=== PATIENT | female | born 1950 | race Hispanic/Latino ===

== ENCOUNTER 2017-05-31 14:30 | Inpatient (IN) | payer OTHER ==
[~2017-05-31] VITALS: Ht 156.2 cm; Wt 78.1 kg
[~2017-05-31 14:30] MED LIST: LEVO50 PO
[2017-05-31 14:45] VITALS: BP 137/74
[2017-05-31 15:16] LABS: CREATININE 0.5 mg/dL (0.5-1.5); POTASSIUM 3.4 mmol/L (3.5-5.1)
[2017-05-31 15:21] LABS: INR 1.01 (0.85-1.15); PARTIAL THROMBOPLASTIN TIME 27.6 SEC (26.3-35.5); PROTHROMBIN TIME 10.6 SEC (9.6-11.6)
[2017-05-31] MEDS ORDERED: PRED5TAB PO (15:33)
[2017-05-31] MEDS ORDERED: DENO60DI SQ (15:33)
[2017-05-31] MEDS ORDERED: RABE20TA27 PO (15:33)
[2017-05-31] MEDS ORDERED: LOSA1TAB54 PO (15:33)
[2017-05-31] MEDS ORDERED: PREG50 PO (15:33)
[2017-05-31] MEDS ORDERED: OMEP40CA37 PO (15:33)
[2017-05-31] MEDS ORDERED: HYDR-4060 PO (15:34)
[2017-05-31 16:17] LABS: APPEARANCE,URINE Clear (CLEAR); BILIRUBIN,URINE Negative (NEGATIVE); COLOR,URINE Yellow (YELLOW); GLUCOSE, URINE (UA) Negative (NEGATIVE); KETONES,URINE Negative (NEGATIVE); LEUKOCYTE ESTERASE ,URINE Small (NEGATIVE); NITRATE,URINE Negative (NEGATIVE); OCCULT BLOOD,URINE Negative (NEGATIVE); PH,URINE 7.5 (5.0-8.0); PROTEIN,URINE Negative (NEGATIVE); UROBILINOGEN,URINE 0.2 mg/dL (0.2-1.0)
[2017-05-31 16:26] LABS: BACTERIA,URINE None Seen /HPF (None Seen); RBC,URINE None Seen /HPF (0-1); RENAL EPITHELIAL CELLS,URINE Few /LPF (None Seen); SQUAMOUS EPITHELIAL CELL,UR 0-2 /LPF (0-2); TRANSITIONAL EPI CELLS,URINE Few /LPF (None Seen); WBC,URINE 0-1 /HPF (0-1)
[2017-06-02 07:40] VITALS: BP 120/70
[2017-06-03] VITALS (26 sets, daily range): BP systolic 120–156; BP diastolic 66–97
[2017-06-03] MEDS ORDERED: TRANEXAMIC ACID 1000MG/10ML IV ONE (07:11)
[2017-06-03] MEDS ORDERED: CEFAZOLIN SODIUM 1 GM VIAL ONE (07:11)
[2017-06-03] MEDS ORDERED: LACTATED RINGERS 1000ML 1,000 ML IV ONE (07:46)
[2017-06-03] MEDS: CEFAZOLIN SODIUM 1 GM VIAL IVP SCH ×3 (08:00→18:13)
[2017-06-03] MEDS ORDERED: LIDOCAINE PF 2% 5ML ABBOJECT ONE (08:21)
[2017-06-03] MEDS ORDERED: ONDANSETRON HCL 4 MG/2 ML VIAL ONE (08:21)
[2017-06-03] MEDS ORDERED: PROPOFOL 10 MG/ML 20ML VIAL IV ONE (08:21)
[2017-06-03] MEDS ORDERED: ROCURONIUM BROMIDE 10MG/1ML 5ML VL ONE (08:21)
[2017-06-03] MEDS ORDERED: DEXAMETHASONE SOD PHOSPHATE 4 MG/ML 1ML VIAL ONE (08:21)
[2017-06-03] MEDS ORDERED: MIDAZOLAM HCL 1 MG/ML 2ML VIAL ONE (08:21)
[2017-06-03] MEDS ORDERED: FENTANYL CITRATE PF 50 MCG/1 ML 2ML VIAL ONE (08:22)
[2017-06-03] MEDS ORDERED: ACETAMINOPHEN EXTRA STRENGTH 500 MG TABLET ONE (08:27)
[2017-06-03] MEDS ORDERED: CELECOXIB 200 MG CAP ONE (08:27)
[2017-06-03] MEDS ORDERED: KETOROLAC TROMETHAMINE 15MG/ML ONE (08:27)
[2017-06-03] MEDS ORDERED: OXYCODONE HCL 10 MG TAB.SR.12H PO ONE (08:28)
[2017-06-03] MEDS ORDERED: METOCLOPRAMIDE 10 MG/2 ML VIAL ONE (08:28)
[2017-06-03] MEDS ORDERED: ROPIVACAINE 0.5% 5MG/ML 30ML IJ ONE (08:51)
[2017-06-03] MEDS ORDERED: CALDOLOR 800MG+NS 250ML 250 ML IV ONE (11:27)
[2017-06-03] MEDS ORDERED: POTASSIUM CHLORIDE 20MEQ/100ML 100 ML IV ONE (11:27)
[2017-06-03] MEDS ORDERED: HYDROCODONE/ACETAMINOPHEN 5/325 MG TAB PO PRN ×2 (13:45→16:45)
[2017-06-03] MEDS ORDERED: FE FUMARATE/FA/MV, MIN COMB#15 1 TAB PO PRN (13:45)
[2017-06-03] MEDS ORDERED: DiphenhydrAMINE HCL 50 MG/ML VIAL IVP PRN (13:45)
[2017-06-03] MEDS ORDERED: PROMETHAZINE HCL 25 MG/ML 1ML AMPULE IM PRN (13:45)
[2017-06-03] MEDS ORDERED: LIDOCAINE HCL-MPF 1% 2ML VIAL IVP PRN (13:45)
[2017-06-03] MEDS ORDERED: CALCIUM CARBONATE 500 MG TABLET PO PRN (13:45)
[2017-06-03] MEDS ORDERED: DIPHENHYDRAMINE HCL 25 MG CAPSULE PO PRN (13:45)
[2017-06-03] MEDS ORDERED: TEMAZEPAM 15 MG CAPSULE PO PRN (13:45)
[2017-06-03] MEDS ORDERED: POTASSIUM CHLORIDE 20MEQ/100ML 100 ML IV PRN (13:45)
[2017-06-03] MEDS ORDERED: POTASSIUM CHLORIDE 10% ELIXIR 20 MEQ/15 ML UDCUP PO PRN (13:45)
[2017-06-03] MEDS ORDERED: MEPERIDINE-PF 50 MG/ML SYG ONE (14:22)
[2017-06-03] MEDS ORDERED: NON-FORMULARY MEDICATION 1 EACH (Rabeprazole Sodium 20 MG) PO PRN (16:45)
[2017-06-03] MEDS ORDERED: NON-FORMULARY MEDICATION 1 EACH (Denosumab (Prolia) 60 MG) SQ SCH (16:45)
[2017-06-03] MEDS: CEFAZOLIN 2GM / 50 ML 50 ML IV SCH (18:13)
[2017-06-03] MEDS: SODIUM CHLORIDE 0.9% 1000ML 1,000 ML IV SCH (18:13)
[2017-06-03] MEDS: PREGABALIN 25 MG CAP PO SCH (21:00)
[2017-06-04] VITALS (7 sets, daily range): BP systolic 110–156; BP diastolic 63–78
[2017-06-04] MEDS: SODIUM CHLORIDE 0.9% 1000ML 1,000 ML IV SCH (02:04)
[2017-06-04] MEDS: CEFAZOLIN 2GM / 50 ML 50 ML IV SCH (02:45)
[2017-06-04] MEDS: CEFAZOLIN SODIUM 1 GM VIAL IVP SCH (03:08)
[2017-06-04] MEDS: HYDROCODONE/ACETAMINOPHEN 5/325 MG TAB PO PRN ×3 (03:11→11:58)
[2017-06-04] MEDS: KETOROLAC TROMETHAMINE 15MG/ML IV PRN ×4 (04:08→23:55)
[2017-06-04 04:58] LABS: HEMATOCRIT 31.6 % (36-48); MEAN CORPUSCULAR HEMOGLOBIN 31.6 pg (27.0-33.0); MEAN CORPUSCULAR HGB CONC 35.9 g/dL (32.0-36.0); MEAN CORPUSCULAR VOLUME 88.2 fL (79-99); PLATELET COUNT (AUTO) 249 K/uL (130-400); RED BLOOD CELL COUNT(AUTO) 3.58 MIL/uL (4.00-5.50); RED CELL DISTRIBUTION WIDTH 14.7 % (11.0-15.5)
[2017-06-04 05:03] LABS: CREATININE 0.5 mg/dL (0.5-1.5); POTASSIUM 3.4 mmol/L (3.5-5.1)
[2017-06-04] MEDS: LEVOTHYROXINE 50 MCG TABLET PO SCH (06:05)
[2017-06-04] MEDS: POLYETHYLENE GLYCOL 3350 17 GM POWD.PACK PO SCH (08:16)
[2017-06-04] MEDS: LOSARTAN/HYDROCHLOROTHIAZIDE 50-12.5MG TABLET PO SCH (08:16)
[2017-06-04] MEDS: PANTOPRAZOLE SODIUM 40 MG TABLET.DR PO SCH (08:17)
[2017-06-04] MEDS: POTASSIUM CHLORIDE 20 MEQ ERTAB PO PRN ×3 (08:17→18:09)
[2017-06-04] MEDS: ENOXAPARIN SODIUM 40 MG/0.4 ML SYRINGE SQ SCH (08:17)
[2017-06-04] MEDS: PREDNISONE 5 MG TABLET PO SCH (08:17)
[2017-06-04] MEDS: PSYLLIUM SEED 1 EACH PACKET PO SCH (11:58)
[2017-06-04] MEDS ORDERED: NALOXONE HCL 0.4 MG/1 ML ML IVP PRN (12:45)
[2017-06-04] MEDS ORDERED: HYDROMORPHONE PCA 10 MG/50 ML 50 ML IV PRN (12:45)
[2017-06-04] MEDS: PREGABALIN 25 MG CAP PO SCH (20:44)
[2017-06-05 05:07] LABS: MEAN CORPUSCULAR HEMOGLOBIN 30.2 pg (27.0-33.0); MEAN CORPUSCULAR HGB CONC 34.4 g/dL (32.0-36.0); MEAN CORPUSCULAR VOLUME 87.9 fL (79-99); NUCLEATED RED BLOOD CELLS 0.1 % (0.0-0.19); PLATELET COUNT (AUTO) 261 K/uL (130-400); RED BLOOD CELL COUNT(AUTO) 3.53 MIL/uL (4.00-5.50); RED CELL DISTRIBUTION WIDTH 14.9 % (11.0-15.5); WHITE BLOOD COUNT (AUTO) 7.9 K/uL (4.8-10.8)
[2017-06-05 05:19] LABS: CREATININE 0.5 mg/dL (0.5-1.5); POTASSIUM 3.9 mmol/L (3.5-5.1)
[2017-06-05] MEDS: LEVOTHYROXINE 50 MCG TABLET PO SCH (05:58)
[2017-06-05 07:48] VITALS: BP 142/71
[2017-06-05] MEDS: POLYETHYLENE GLYCOL 3350 17 GM POWD.PACK PO SCH (08:21)
[2017-06-05] MEDS: ENOXAPARIN SODIUM 40 MG/0.4 ML SYRINGE SQ SCH (08:21)
[2017-06-05] MEDS: LOSARTAN/HYDROCHLOROTHIAZIDE 50-12.5MG TABLET PO SCH (08:21)
[2017-06-05] MEDS: PREDNISONE 5 MG TABLET PO SCH (08:22)
[2017-06-05] MEDS: PANTOPRAZOLE SODIUM 40 MG TABLET.DR PO SCH (08:22)
[2017-06-05] MEDS ORDERED: HYDR-2132 PO (10:05)
[2017-06-05] MEDS ORDERED: ASPI-1012 PO (10:05)
[2017-06-05 11:16] VITALS: BP 119/70
[2017-06-05] MEDS: PSYLLIUM SEED 1 EACH PACKET PO SCH (12:38)
[2017-06-05] MEDS ORDERED: BISACODYL 5 MG TABLET.DR PO PRN (13:45)
[2017-06-05] MEDS: KETOROLAC TROMETHAMINE 15MG/ML IV PRN (14:09)
[2017-06-05] MEDS ORDERED: FLU VACC QS2017-18 36MOS UP/PF 60 MCG/0.5 ML ML IM ONE (15:15)
[2017-06-06] MEDS ORDERED: BISACODYL 10 MG SUPP.RECT RC PRN (13:45)
== END 2017-06-05 16:08 | disposition home health service (06) | DRG 483 ==
LOC: EDSTATUS 14:30 → DAHIP 06-03 07:28 → 4BH 06-03 14:38 → 4AH 06-03 14:47
PROVIDERS: ADMIT Orthopaedic Surgery; ATTEND Orthopaedic Surgery
PROC: 0RRJ00Z Replacement of Right Shoulder Joint with Reverse Ball and Socket Synthetic Substitute, Open Approach (ICD-10-PCS; principal; 2017-06-03 10:59)
DX: M12.9 Arthropathy, unspecified (principal)
CPT/HCPCS: 36415; 76000; 80048; 81001; 84132; 85027; 85610; 85730; 88304; 88311; 96374; 96375; A4218; A4565; G0008; J0690; J1100; J1170; J1650; J1741; J1885; J2001; J2175; J2250; J2405; J2704; J2765; J2795; J3010; J3480; J3490; J7030; J7120; J7512; Q2038

== ENCOUNTER 2018-02-24 13:11 | Emergency (ER) | payer OTHER ==
[~2018-02-24 13:11] MED LIST changes: +ASPI-1012 PO; +DENO60DI SQ; +HYDR-2132 PO; +HYDR-4060 PO; +LOSA1TAB54 PO; +OMEP40CA37 PO; +PRED5TAB PO; +PREG50 PO; +RABE20TA27 PO
[2018-02-24] MEDS ORDERED: HYDROCODONE/ACETAMINOPHEN 10/325 MG TAB ONE (14:07)
[2018-02-24] MEDS ORDERED: MORPHINE SULFATE 2 MG/ML 1ML SYG ONE (15:53)
[2018-02-24] MEDS ORDERED: MORPHINE SULFATE 8 MG/ML VIAL ONE (15:53)
== END 2018-02-24 16:28 | disposition home or self-care (01) ==
LOC: EDH 13:11
DX: S52.591A Other fractures of lower end of right radius, initial encounter for closed fracture (principal); S20.211A Contusion of right front wall of thorax, initial encounter; I10 Essential (primary) hypertension; Z88.6 Allergy status to analgesic agent; W10.8XXA Fall (on) (from) other stairs and steps, initial encounter; Y93.89 Activity, other specified; Y92.89 Other specified places as the place of occurrence of the external cause; Y99.8 Other external cause status
CPT/HCPCS: 71046; 73110; 73590; 96372; 99284; J2270

== ENCOUNTER 2018-03-03 06:13 | Day surgery (SDC) | payer OTHER ==
[2018-02-28 16:10] VITALS: BP 140/71
[2018-02-28 16:14] LABS: BASOPHILS % (AUTO) 1.2 % (0.0-5.0); EOSINOPHILS % (AUTO) 0.9 % (0.0-8.0); HEMATOCRIT 35.9 % (36-48); LYMPHOCYTES % (AUTO) 18.6 % (21.0-51.0); MEAN CORPUSCULAR HGB CONC 33.5 g/dL (32.0-36.0); MEAN CORPUSCULAR VOLUME 86.7 fL (79-99); MONOCYTES % (AUTO) 6.8 % (3.0-13.0); NEUTROPHILS % (AUTO) 72.5 % (40.0-77.0); PLATELET COUNT (AUTO) 369 K/uL (130-400); RED BLOOD CELL COUNT(AUTO) 4.14 MIL/uL (4.00-5.50); RED CELL DISTRIBUTION WIDTH 16.5 % (11.0-15.5); WHITE BLOOD COUNT (AUTO) 8.8 K/uL (4.8-10.8)
[2018-02-28 16:24] LABS: CREATININE 0.6 mg/dL (0.5-1.5); POTASSIUM 3.4 mmol/L (3.5-5.1)
[2018-02-28] MEDS: CEFAZOLIN SODIUM 1 GM VIAL IVP SCH (17:15)
[~2018-03-03] VITALS: Ht 154.9 cm; Wt 79.5 kg
[2018-03-03] VITALS (17 sets, daily range): BP systolic 95–119; BP diastolic 41–64
[~2018-03-03 06:13] MED LIST changes: -ASPI-1012 PO; +CHOL500051 PO; -DENO60DI SQ; -HYDR-2132 PO; -LEVO50 PO; -LOSA1TAB54 PO; -OMEP40CA37 PO; -PRED5TAB PO; -PREG50 PO; -RABE20TA27 PO; +TRAM50TA4 PO
[2018-03-03] MEDS ORDERED: LACTATED RINGERS 1000ML 1,000 ML IV ONE (06:37)
[2018-03-03] MEDS ORDERED: LOSA1TAB54 PO (07:02)
[2018-03-03] MEDS ORDERED: LIDOCAINE PF 2% 5ML ABBOJECT ONE (07:22)
[2018-03-03] MEDS ORDERED: FENTANYL CITRATE PF 50 MCG/1 ML 2ML VIAL ONE (07:23)
[2018-03-03] MEDS ORDERED: PROPOFOL 10 MG/ML 20ML VIAL IV ONE (07:23)
[2018-03-03] MEDS ORDERED: CEFAZOLIN SODIUM 1 GM VIAL ONE (07:43)
[2018-03-03] MEDS ORDERED: EPHEDRINE SULFATE 50 MG/ML AMPULE ONE (08:38)
[2018-03-03] MEDS: CEFAZOLIN SODIUM 1 GM VIAL IVP SCH (08:40)
[2018-03-03] MEDS ORDERED: KETOROLAC TROMETHAMINE 30MG/ML ONE ×2 (09:03→09:04)
[2018-03-03] MEDS ORDERED: ONDANSETRON HCL 4 MG/2 ML VIAL ONE (09:06)
[2018-03-03] MEDS ORDERED: MEPERIDINE-PF 25 MG/ML SYG ONE ×2 (09:29→09:39)
[2018-03-03] MEDS ORDERED: HYDR-4457 PO (09:30)
== END 2018-03-03 10:59 | disposition home or self-care (01) ==
LOC: DAH 06:13 → SUH 06:13
PROVIDERS: ATTEND Orthopaedic Surgery
DX: S52.511A Displaced fracture of right radial styloid process, initial encounter for closed fracture (principal); W18.30XA Fall on same level, unspecified, initial encounter; Y93.9 Activity, unspecified; Y92.89 Other specified places as the place of occurrence of the external cause; Y99.9 Unspecified external cause status; Z98.890 Other specified postprocedural states; Z68.32 Body mass index [BMI] 32.0-32.9, adult; I10 Essential (primary) hypertension; M06.9 Rheumatoid arthritis, unspecified; E55.9 Vitamin D deficiency, unspecified; K21.9 Gastro-esophageal reflux disease without esophagitis; Z79.899 Other long term (current) drug therapy; Z90.49 Acquired absence of other specified parts of digestive tract; Z90.710 Acquired absence of both cervix and uterus; Z88.8 Allergy status to other drugs, medicaments and biological substances; M19.90 Unspecified osteoarthritis, unspecified site
CPT/HCPCS: 25606; 36415; 76000; 80048; 85025; 93005; A4649; A4930; A6223; J0690; J1885; J2001; J2175 ×2; J2405; J2704; J3010; J3490; J7120; Q4051

== ENCOUNTER 2018-08-19 18:11 | Emergency (ER) | payer OTHER ==
[~2018-08-19 18:11] MED LIST changes: -HYDR-4060 PO; +HYDR-4457 PO; +LOSA1TAB54 PO
[2018-08-19] MEDS ORDERED: LIDOCAINE HCL 2% VISCOUS 15 ML UDCUP ONE (19:47)
[2018-08-19] MEDS ORDERED: MAG HYDROX/AL HYDROX/SIMETH ES 30 ML SUSP UDCUP ONE (19:47)
[2018-08-19] MEDS ORDERED: ONDANSETRON ODT 4 MG TAB ONE (19:47)
== END 2018-08-19 20:33 | disposition home or self-care (01) ==
LOC: EDH 18:11
DX: K21.9 Gastro-esophageal reflux disease without esophagitis (principal); I10 Essential (primary) hypertension; M19.90 Unspecified osteoarthritis, unspecified site; Z88.6 Allergy status to analgesic agent; Z98.890 Other specified postprocedural states

== ENCOUNTER 2018-10-03 22:08 | Emergency (ER) | payer OTHER ==
[2018-10-03 22:47] LABS: HEMATOCRIT 36.1 % (36-48); MEAN CORPUSCULAR HEMOGLOBIN 28.1 pg (27.0-33.0); MEAN CORPUSCULAR HGB CONC 32.9 g/dL (32.0-36.0); MEAN CORPUSCULAR VOLUME 85.3 fL (79-99); NEUTROPHILS % (AUTO) 69.7 % (40.0-77.0); PLATELET COUNT (AUTO) 264 K/uL (130-400); RED BLOOD CELL COUNT(AUTO) 4.24 MIL/uL (4.00-5.50); RED CELL DISTRIBUTION WIDTH 15.2 % (11.0-15.5); WHITE BLOOD COUNT (AUTO) 6.6 K/uL (4.8-10.8)
[2018-10-03 22:48] LABS: BASOPHILS % (AUTO) 1.2 % (0.0-5.0); EOSINOPHILS % (AUTO) 0.3 % (0.0-8.0); LYMPHOCYTES % (AUTO) 20.2 % (21.0-51.0); MONOCYTES % (AUTO) 8.6 % (3.0-13.0); NUCLEATED RED BLOOD CELLS 0.2 % (0.0-0.19)
[2018-10-03 22:53] LABS: CREATININE 0.6 mg/dL (0.5-1.5); INR 0.95 (0.85-1.15); PARTIAL THROMBOPLASTIN TIME 25.6 SEC (26.3-35.5); POTASSIUM 3.3 mmol/L (3.5-5.1)
[2018-10-03 22:58] LABS: ALBUMIN 4.1 g/dL (3.5-5.0); BILIRUBIN,TOTAL 0.5 mg/dL (0.2-1.0); TOTAL PROTEIN, SERUM 7.7 g/dL (6.0-8.3)
[2018-10-04] MEDS ORDERED: ONDANSETRON HCL 4 MG/2 ML VIAL ONE (01:05)
[2018-10-04] MEDS ORDERED: ACETAMINOPHEN 325 MG TAB ONE (01:22)
[2018-10-04] MEDS ORDERED: SODIUM CHLORIDE 0.9% 500ML 500 ML IV ONE (03:09)
[2018-10-04] MEDS ORDERED: IOHEXOL 350 MG/ML 100ML INFUS..BTL IV ONE (03:57)
== END 2018-10-04 06:18 | disposition home or self-care (01) ==
LOC: EDH 22:08
DX: R06.00 Dyspnea, unspecified (principal); R11.0 Nausea; R07.89 Other chest pain; I10 Essential (primary) hypertension; K21.9 Gastro-esophageal reflux disease without esophagitis; M19.90 Unspecified osteoarthritis, unspecified site; Z88.6 Allergy status to analgesic agent; Z90.49 Acquired absence of other specified parts of digestive tract; Z90.710 Acquired absence of both cervix and uterus; Z98.890 Other specified postprocedural states
CPT/HCPCS: 36415; 71046; 71275; 76700; 80053; 83690; 83880; 84484 ×2; 85025; 85378; 85610; 85730; 93005 ×2; 93970; 96374; 99285; J2405; J7040; Q9967

== ENCOUNTER 2018-11-07 11:20 | Emergency (ER) | payer OTHER | END 2018-11-07 12:42 | disposition home or self-care (01) | LOC: EDH 11:20 | DX: M54.2 Cervicalgia (principal); M25.511 Pain in right shoulder; K21.9 Gastro-esophageal reflux disease without esophagitis; I10 Essential (primary) hypertension; M19.90 Unspecified osteoarthritis, unspecified site; Z88.6 Allergy status to analgesic agent; V49.19XA Passenger injured in collision with other motor vehicles in nontraffic accident, initial encounter; Y93.89 Activity, other specified; Y92.89 Other specified places as the place of occurrence of the external cause; Y99.8 Other external cause status | CPT/HCPCS: 72040; 73030 ==

== ENCOUNTER → 2018-12-30 | Outpatient (CLI) | payer OTHER | END | disposition home or self-care (01) | LOC: RAH 13:11 | PROVIDERS: ATTEND Orthopaedic Surgery | DX: T84.019A Broken internal joint prosthesis, unspecified site, initial encounter (principal); X58.XXXA Exposure to other specified factors, initial encounter; Y93.89 Activity, other specified; Y92.89 Other specified places as the place of occurrence of the external cause; Y99.8 Other external cause status | CPT/HCPCS: 73700 ==

== ENCOUNTER 2020-01-18 15:59 | Emergency (ER) | payer OTHER ==
[2020-01-18] MEDS ORDERED: ONDANSETRON 4 MG TABLET ONE (16:38)
[2020-01-18 16:43] LABS: BASOPHILS % (AUTO) 0.4 % (0.0-5.0); EOSINOPHILS % (AUTO) 0.7 % (0.0-8.0); HEMATOCRIT 38.7 % (36-48); LYMPHOCYTES % (AUTO) 26.7 % (21.0-51.0); MEAN CORPUSCULAR HEMOGLOBIN 28.2 pg (27.0-33.0); MONOCYTES % (AUTO) 8.8 % (3.0-13.0); NEUTROPHILS % (AUTO) 63.2 % (40.0-77.0); PLATELET COUNT (AUTO) 304 K/uL (130-400); RED CELL DISTRIBUTION WIDTH 14.6 % (11.0-15.5); WHITE BLOOD COUNT (AUTO) 5.6 K/uL (4.8-10.8)
[2020-01-18 16:52] LABS: CREATININE 0.6 mg/dL (0.5-1.5); POTASSIUM 3.5 mmol/L (3.5-5.1)
[2020-01-18 16:57] LABS: BILIRUBIN,TOTAL 0.3 mg/dL (0.2-1.0)
== END 2020-01-18 18:21 | disposition home or self-care (01) ==
LOC: EDH 15:59
DX: T17.208A Unspecified foreign body in pharynx causing other injury, initial encounter (principal); R06.02 Shortness of breath; R11.10 Vomiting, unspecified; M19.90 Unspecified osteoarthritis, unspecified site; I10 Essential (primary) hypertension; K21.9 Gastro-esophageal reflux disease without esophagitis; Z88.6 Allergy status to analgesic agent; X58.XXXA Exposure to other specified factors, initial encounter; Y93.89 Activity, other specified; Y92.89 Other specified places as the place of occurrence of the external cause; Y99.8 Other external cause status
CPT/HCPCS: 36415; 70490; 71045; 80053; 82550; 84484; 85025; 93005; 99285; Q0162

== ENCOUNTER → 2020-03-07 | Outpatient (CLI) | payer OTHER | END | disposition home or self-care (01) | LOC: RAH 11:31 | PROVIDERS: ATTEND Family Medicine | DX: Z12.31 Encounter for screening mammogram for malignant neoplasm of breast (principal) | CPT/HCPCS: 77067 ==

== ENCOUNTER 2021-03-20 07:26 | Observation (INO) | payer OTHER ==
[2021-03-15 09:41] LABS: BASOPHILS % (AUTO) 0.5 % (0.0-5.0); EOSINOPHILS % (AUTO) 0.5 % (0.0-8.0); LYMPHOCYTES % (AUTO) 18.3 % (21.0-51.0); MEAN CORPUSCULAR HEMOGLOBIN 29.4 pg (27.0-33.0); MEAN CORPUSCULAR HGB CONC 31.8 g/dL (32.0-36.0); MEAN CORPUSCULAR VOLUME 92.2 fL (79-99); MONOCYTES % (AUTO) 7.5 % (3.0-13.0); NEUTROPHILS % (AUTO) 72.9 % (40.0-77.0); PLATELET COUNT (AUTO) 301 K/uL (130-400); RED BLOOD CELL COUNT(AUTO) 4.12 MIL/uL (4.00-5.50); RED CELL DISTRIBUTION WIDTH 14.6 % (11.0-15.5); WHITE BLOOD COUNT (AUTO) 8.7 K/uL (4.8-10.8)
[2021-03-15 09:54] LABS: PROTHROMBIN TIME 10.9 SEC (9.6-11.6)
[2021-03-15 09:56] LABS: CREATININE 0.7 mg/dL (0.5-1.5); POTASSIUM 3.7 mmol/L (3.5-5.1)
[2021-03-15 12:02] LABS: APPEARANCE,URINE Clear (CLEAR); BILIRUBIN,URINE Negative (NEGATIVE); COLOR,URINE Yellow (YELLOW); GLUCOSE, URINE (UA) Negative (NEGATIVE); KETONES,URINE Negative (NEGATIVE); LEUKOCYTE ESTERASE ,URINE Trace (NEGATIVE); NITRATE,URINE Negative (NEGATIVE); OCCULT BLOOD,URINE Negative (NEGATIVE); PROTEIN,URINE Negative (NEGATIVE)
[2021-03-15 12:13] VITALS: BP 145/67
[2021-03-15 12:15] LABS: BACTERIA,URINE Rare /HPF (None Seen); HYALINE CASTS, URINE 0-1 /LPF (0-1 /LPF); RBC,URINE 0-1 /HPF (0-1); SQUAMOUS EPITHELIAL CELL,UR 0-2 /HPF (0-2); WBC,URINE 0-1 /HPF (0-1)
[~2021-03-20] VITALS: Ht 154.9 cm; Wt 71.4 kg
[2021-03-20] VITALS (27 sets, daily range): BP systolic 120–160; BP diastolic 51–109
[~2021-03-20 07:26] MED LIST changes: +AMIT10TA6 PO; +CHOL200013 PO; -CHOL500051 PO; +DENO60DI SQ; +GABA300C PO; +HYDR-4068 PO; -HYDR-4457 PO; +LEVO50TA6 PO; +NAPR-1023 PO; -TRAM50TA4 PO
[2021-03-20] MEDS ORDERED: LACTATED RINGERS 1000ML 1,000 ML IV ONE (07:58)
[2021-03-20] MEDS: CEFAZOLIN SODIUM 1 GM VIAL IVP SCH ×3 (08:25→17:00)
[2021-03-20] MEDS ORDERED: ACETAMINOPHEN 500 MG TABLET ONE (09:34)
[2021-03-20] MEDS ORDERED: CELECOXIB 200 MG CAP ONE (09:34)
[2021-03-20] MEDS ORDERED: MEPERIDINE-PF 25 MG/ML SYG ONE ×3 (09:35→12:58)
[2021-03-20] MEDS ORDERED: CEFAZOLIN SODIUM 1 GM VIAL ONE (09:49)
[2021-03-20] MEDS ORDERED: TRANEXAMIC ACID 1000MG/10ML ONE (09:50)
[2021-03-20] MEDS ORDERED: SUCCINYLCHOLINE CHLORIDE 20 MG/ML 10 ML VIAL ONE (09:55)
[2021-03-20] MEDS ORDERED: PROPOFOL 10 MG/ML 20ML VIAL IV ONE (09:55)
[2021-03-20] MEDS ORDERED: LIDOCAINE PF 100MG/5ML (2%) SYRINGE 5ML ONE (09:55)
[2021-03-20] MEDS ORDERED: MIDAZOLAM HCL 1 MG/ML 2ML VIAL ONE (09:55)
[2021-03-20] MEDS ORDERED: ROCURONIUM 10MG/1ML SYR 10 MG/ML ML ONE (09:55)
[2021-03-20] MEDS ORDERED: FENTANYL CITRATE PF 50 MCG/1 ML 2ML VIAL ONE (09:59)
[2021-03-20] MEDS ORDERED: DEXAMETHASONE SOD PHOSPHATE 4 MG/ML 1ML VIAL ONE (10:10)
[2021-03-20] MEDS ORDERED: DEXAMETHASONE SOD PHOSPHATE 10MG/ML 1ML VIAL ONE (10:11)
[2021-03-20] MEDS: ACETAMINOPHEN 500 MG TABLET PO SCH ×2 (12:00→20:43)
[2021-03-20] MEDS ORDERED: FERROUS FUMARATE 324 MG TABLET PO PRN (12:00)
[2021-03-20] MEDS ORDERED: OXYCODONE HCL 5 MG TAB PO PRN (12:00)
[2021-03-20] MEDS ORDERED: LIDOCAINE HCL-MPF 1% 2ML VIAL IV PRN (12:00)
[2021-03-20] MEDS ORDERED: GLYCOPYRROLATE 1 MG/5 ML SYRINGE ONE (12:00)
[2021-03-20] MEDS ORDERED: CALCIUM CARB 500MG PO PRN (12:00)
[2021-03-20] MEDS ORDERED: ONDANSETRON 4MG INJ IVP PRN (12:00)
[2021-03-20] MEDS ORDERED: NEOSTIGMINE 5MG/5ML SYR IV ONE (12:00)
[2021-03-20] MEDS ORDERED: TRAMADOL HCL 50 MG TABLET PO PRN (12:00)
[2021-03-20] MEDS: 0.9%NACL 1000ML 1,000 ML IV SCH ×2 (12:00→14:14)
[2021-03-20] MEDS ORDERED: DiphenhydrAMINE HCL 50 MG/ML VIAL IVP PRN (12:00)
[2021-03-20] MEDS ORDERED: TEMAZEPAM 15 MG CAPSULE PO PRN (12:00)
[2021-03-20] MEDS ORDERED: POTASSIUM CHLORIDE 20MEQ/100ML 100 ML IV PRN (12:00)
[2021-03-20] MEDS ORDERED: POTASSIUM CHLORIDE 10% ELIXIR 20 MEQ/15 ML UDCUP PO PRN (12:00)
[2021-03-20] MEDS: OXYCODONE HCL 5 MG TAB PO PRN (14:12)
[2021-03-20] MEDS ORDERED: PROLIA 60 MG SQ SCH (14:30)
[2021-03-20] MEDS ORDERED: [UNRECOGNIZED DRUG - REMARK] MISC SCH (14:30)
[2021-03-20] MEDS ORDERED: PHARMACY COMMUNICATION MISC SCH (20:30)
[2021-03-20] MEDS: HYDROCHLOROTHIAZIDE 25 MG TABLET PO SCH (20:37)
[2021-03-20] MEDS: GABAPENTIN 300 MG CAPSULE PO SCH (20:37)
[2021-03-20] MEDS: FAMOTIDINE 20MG TAB PO SCH (20:38)
[2021-03-20] MEDS: LOSARTAN 100 MG TABLET PO SCH (20:38)
[2021-03-20] MEDS: CELECOXIB 200 MG CAP PO SCH (20:38)
[2021-03-20] MEDS: AMITRIPTYLINE 10MG TAB PO SCH (20:46)
[2021-03-20] MEDS: **HM**(Vitamin D3) (Vitamin D3) 50 MCG) PO SCH (20:46)
[2021-03-20] MEDS ORDERED: CYCL5TAB PO (20:49)
[2021-03-21 00:14] VITALS: BP 119/67
[2021-03-21] MEDS: 0.9%NACL 1000ML 1,000 ML IV SCH ×2 (00:49→08:00)
[2021-03-21] MEDS: CEFAZOLIN SODIUM 1 GM VIAL IVP SCH (00:54)
[2021-03-21 04:12] VITALS: BP 126/62
[2021-03-21 04:28] LABS: CREATININE 0.5 mg/dL (0.5-1.5); POTASSIUM 3.3 mmol/L (3.5-5.1)
[2021-03-21 04:35] LABS: HEMATOCRIT 32.2 % (36-48); MEAN CORPUSCULAR HEMOGLOBIN 29.2 pg (27.0-33.0); MEAN CORPUSCULAR VOLUME 91.2 fL (79-99); RED BLOOD CELL COUNT(AUTO) 3.53 MIL/uL (4.00-5.50); RED CELL DISTRIBUTION WIDTH 14.4 % (11.0-15.5)
[2021-03-21] MEDS: ACETAMINOPHEN 500 MG TABLET PO SCH ×3 (04:51→21:01)
[2021-03-21] MEDS: OXYCODONE HCL 5 MG TAB PO PRN ×3 (04:54→18:19)
[2021-03-21] MEDS: LEVOTHYROXINE 50 MCG TABLET PO SCH (06:43)
[2021-03-21] MEDS ORDERED: ENOXAPARIN SODIUM 40 MG/0.4 ML SYRINGE SQ ONE (07:00)
[2021-03-21] MEDS: KCL 20 MEQ ERTAB PO PRN ×2 (07:00→08:21)
[2021-03-21 07:30] VITALS: BP 131/77
[2021-03-21] MEDS: FAMOTIDINE 20MG TAB PO SCH ×2 (08:20→20:59)
[2021-03-21] MEDS: POLYETHYLENE GLYCOL 3350 17 GM POWD.PACK PO SCH (08:20)
[2021-03-21] MEDS: GABAPENTIN 300 MG CAPSULE PO SCH ×2 (08:21→20:59)
[2021-03-21] MEDS: CELECOXIB 200 MG CAP PO SCH ×2 (08:21→20:58)
[2021-03-21] MEDS: **HM**(Vitamin D3) (Vitamin D3) 50 MCG) PO SCH ×2 (09:00→20:10)
[2021-03-21] MEDS: KETOROLAC 15MG/ML VIAL (15MG/ML) IV PRN ×2 (10:27→17:38)
[2021-03-21 11:00] VITALS: BP 127/61
[2021-03-21 16:00] VITALS: BP 127/58
[2021-03-21 19:00] VITALS: BP 144/77
[2021-03-21] MEDS: ASPIRIN 81 MG EC TAB PO SCH (20:58)
[2021-03-21] MEDS: LOSARTAN 100 MG TABLET PO SCH (20:58)
[2021-03-21] MEDS: AMITRIPTYLINE 10MG TAB PO SCH (20:59)
[2021-03-21] MEDS: HYDROCHLOROTHIAZIDE 25 MG TABLET PO SCH (20:59)
[2021-03-22] VITALS: BP 148/73
[2021-03-22] MEDS: ACETAMINOPHEN 500 MG TABLET PO SCH ×2 (03:57→13:58)
[2021-03-22 04:00] VITALS: BP 134/71
[2021-03-22] MEDS: OXYCODONE HCL 5 MG TAB PO PRN ×3 (04:00→16:25)
[2021-03-22] MEDS: LEVOTHYROXINE 50 MCG TABLET PO SCH (05:51)
[2021-03-22] MEDS: **HM**(Vitamin D3) (Vitamin D3) 50 MCG) PO SCH (07:38)
[2021-03-22 08:07] VITALS: BP 133/68
[2021-03-22] MEDS: FAMOTIDINE 20MG TAB PO SCH (08:39)
[2021-03-22] MEDS: CELECOXIB 200 MG CAP PO SCH (08:39)
[2021-03-22] MEDS: ASPIRIN 81 MG EC TAB PO SCH (08:39)
[2021-03-22] MEDS: POLYETHYLENE GLYCOL 3350 17 GM POWD.PACK PO SCH (08:39)
[2021-03-22] MEDS: GABAPENTIN 300 MG CAPSULE PO SCH (08:39)
[2021-03-22 11:16] VITALS: BP 139/66
[2021-03-22 15:51] VITALS: BP 136/68
[2021-03-22] MEDS ORDERED: AEC81 PO (18:41)
[2021-03-22] MEDS ORDERED: HYDR-4060 PO (18:41)
[2021-03-23] MEDS ORDERED: BISACODYL 10 MG SUPP.RECT RC PRN (12:00)
== END 2021-03-22 19:55 | disposition home health service (06) ==
LOC: DAH 07:26 → INTOOBSV 07:27 → DAHIP 07:27 → 4BH 12:59
PROVIDERS: ADMIT Orthopaedic Surgery; ATTEND Orthopaedic Surgery
DX: M23.51 Chronic instability of knee, right knee (principal); Z20.822 Contact with and (suspected) exposure to COVID-19; M65.9 Synovitis and tenosynovitis, unspecified; M06.9 Rheumatoid arthritis, unspecified; K21.9 Gastro-esophageal reflux disease without esophagitis; I10 Essential (primary) hypertension; E03.9 Hypothyroidism, unspecified; Z96.641 Presence of right artificial hip joint; Z96.651 Presence of right artificial knee joint; Z96.653 Presence of artificial knee joint, bilateral; Z79.899 Other long term (current) drug therapy
CPT/HCPCS: 20680; 36415 ×2; 64447; 76942; 80048 ×2; 81001; 82948 ×8; 85025; 85027; 85610; 87070; 87076; 87088; 87205; 87635; 87641; 96372; 96374; 96375; 96376; 97039 ×4; 97116 ×3; 97161; A4215; A4221; A4222; A4223; A4600; A4649 ×5; A4663; A4930 ×3; A5120; A9272; C9803; G0378 ×55; J0330; J0690 ×4; J1100 ×2; J1650; J1885 ×2; J2001; J2175 ×3; J2250; J2704; J2710; J3010; J3490 ×2; J7030 ×2; J7120

== ENCOUNTER 2022-01-23 15:29 | Emergency (ER) | payer OTHER ==
[~2022-01-23] VITALS: Ht 154.9 cm; Wt 71.2 kg
[~2022-01-23 15:29] MED LIST changes: +AEC81 PO; +CYCL5TAB PO; +HYDR-4060 PO; -HYDR-4068 PO
[2022-01-23 16:53] LABS: BASOPHILS % (AUTO) 0.5 % (0.0-5.0); EOSINOPHILS % (AUTO) 0.9 % (0.0-8.0); HEMATOCRIT 34.2 % (36-48); LYMPHOCYTES % (AUTO) 20.7 % (21.0-51.0); MEAN CORPUSCULAR HEMOGLOBIN 28.7 pg (27.0-33.0); MEAN CORPUSCULAR HGB CONC 32.5 g/dL (32.0-36.0); MEAN CORPUSCULAR VOLUME 88.4 fL (79-99); MONOCYTES % (AUTO) 9.9 % (3.0-13.0); NEUTROPHILS % (AUTO) 67.5 % (40.0-77.0); PLATELET COUNT (AUTO) 327 K/uL (130-400); RED BLOOD CELL COUNT(AUTO) 3.87 MIL/uL (4.00-5.50); RED CELL DISTRIBUTION WIDTH 13.7 % (11.0-15.5); WHITE BLOOD COUNT (AUTO) 8.2 K/uL (4.8-10.8)
[2022-01-23 17:09] LABS: ALBUMIN 3.5 g/dL (3.5-5.0); CREATININE 0.8 mg/dL (0.5-1.5); TOTAL PROTEIN, SERUM 7.4 g/dL (6.0-8.3)
[2022-01-23 17:21] LABS: POTASSIUM 2.8 mmol/L (3.5-5.1)
[2022-01-23] MEDS ORDERED: POTASSIUM BICARB/CIT AC 25 MEQ TABLET.EFF PO STA (17:52)
[2022-01-23] MEDS ORDERED: POTASSIUM BICARB/CIT AC 25 MEQ TABLET.EFF ONE (18:12)
[2022-01-23] MEDS ORDERED: NAPR375T6 PO (18:43)
[2022-01-23 18:51] VITALS: BP 148/76
== END 2022-01-23 18:55 | disposition home or self-care (01) ==
LOC: EDH 15:29
DX: M94.0 Chondrocostal junction syndrome [Tietze] (principal); I10 Essential (primary) hypertension; Z90.49 Acquired absence of other specified parts of digestive tract; Z98.890 Other specified postprocedural states; Z79.899 Other long term (current) drug therapy; Z88.5 Allergy status to narcotic agent; Z79.82 Long term (current) use of aspirin
CPT/HCPCS: 36415; 71045; 80053; 84484; 85025; 93005

== ENCOUNTER 2022-04-03 19:15 | Observation (INO) | payer OTHER ==
[~2022-04-03] VITALS: Ht 154.9 cm; Wt 68.9 kg
[~2022-04-03 19:15] MED LIST changes: +NAPR375T6 PO
[2022-04-03 20:08] LABS: BASOPHILS % (AUTO) 0.3 % (0.0-5.0); EOSINOPHILS % (AUTO) 0.1 % (0.0-8.0); HEMATOCRIT 36.3 % (36-48); MEAN CORPUSCULAR HEMOGLOBIN 28.7 pg (27.0-33.0); MEAN CORPUSCULAR HGB CONC 33.3 g/dL (32.0-36.0); MONOCYTES % (AUTO) 5.4 % (3.0-13.0); NEUTROPHILS % (AUTO) 81.3 % (40.0-77.0); PLATELET COUNT (AUTO) 427 K/uL (130-400); RED BLOOD CELL COUNT(AUTO) 4.22 MIL/uL (4.00-5.50); RED CELL DISTRIBUTION WIDTH 13.7 % (11.0-15.5); WHITE BLOOD COUNT (AUTO) 14.7 K/uL (4.8-10.8)
[2022-04-03 20:26] LABS: CREATININE 0.8 mg/dL (0.5-1.5); POTASSIUM 3.2 mmol/L (3.5-5.1); TOTAL PROTEIN, SERUM 8.1 g/dL (6.0-8.3)
[2022-04-03] MEDS ORDERED: MORPHINE 4 MG SYG IVP ONE (20:30)
[2022-04-03] MEDS ORDERED: ONDANSETRON 4MG INJ IVP ONE (20:30)
[2022-04-03] MEDS ORDERED: 0.9% NACL 500ML IV.SOLN 500 ML IV ONE (20:30)
[2022-04-03] MEDS: 0.9% NACL 250ML 250 ML IV ONE ×2 (20:38→20:39)
[2022-04-03] MEDS ORDERED: POTASSIUM BICARB/CIT AC 25 MEQ TABLET.EFF PO ONE (21:00)
[2022-04-03 22:27] LABS: APPEARANCE,URINE CLEAR (CLEAR); BILIRUBIN,URINE NEGATIVE (NEGATIVE); COLOR,URINE LIGHT-YELLOW (YELLOW); GLUCOSE, URINE (UA) NEGATIVE (NEGATIVE); KETONES,URINE NEGATIVE (NEGATIVE); LEUKOCYTE ESTERASE ,URINE NEGATIVE Leu/uL (NEGATIVE); NITRATE,URINE NEGATIVE (NEGATIVE); PH,URINE 6.5 (5.0-8.0); PROTEIN,URINE NEGATIVE (NEGATIVE); UROBILINOGEN,URINE 0.2 mg/dL (0.2-1.0)
[2022-04-03 22:47] LABS: MUCUS,URINE RARE LPF (None Seen); SQUAMOUS EPITHELIAL CELL,UR FEW /HPF (0-2); WBC,URINE 0-1 /HPF (0-1)
[2022-04-03] MEDS ORDERED: FAMO20TA8 PO (22:52)
[2022-04-03] MEDS ORDERED: LOSA1TAB54 PO (22:52)
[2022-04-03] MEDS ORDERED: MELA5CAP PO (22:52)
[2022-04-03] MEDS ORDERED: AMIT10TA6 PO (22:52)
[2022-04-03] MEDS ORDERED: LACTULOSE 20 GM/30 ML UDCUP PO PRN (23:00)
[2022-04-03] MEDS ORDERED: ONDANSETRON 4MG INJ IVP PRN (23:00)
[2022-04-03] MEDS ORDERED: LIDOCAINE HCL-MPF 1% 2ML VIAL IV PRN (23:00)
[2022-04-03] MEDS ORDERED: DOCUSATE SODIUM 100 MG CAP PO PRN (23:00)
[2022-04-03] MEDS ORDERED: HYDRALAZINE 20MG/ML VIAL IV PRN (23:00)
[2022-04-03] MEDS ORDERED: POTASSIUM CHLORIDE 10% ELIXIR 20 MEQ/15 ML UDCUP PO PRN (23:00)
[2022-04-03] MEDS ORDERED: CLONIDINE HCL 0.1 MG TABLET PO PRN (23:00)
[2022-04-03] MEDS ORDERED: POTASSIUM CHLORIDE 20MEQ/100ML 100 ML IV PRN (23:00)
[2022-04-03] MEDS ORDERED: MAGNESIUM 2GM PREMIX 50ML 50 ML IV PRN (23:00)
[2022-04-03] MEDS ORDERED: GLUCAGON 1MG KIT 1 MG ML IM PRN (23:00)
[2022-04-03] MEDS ORDERED: ACETAMINOPHEN 650 MG SUPPOSITORY RC PRN (23:00)
[2022-04-03] MEDS ORDERED: DEXTROSE 50%-WATER 50 ML DISP.SYRIN IV PRN (23:00)
[2022-04-03] MEDS ORDERED: TEMAZEPAM 15 MG CAPSULE PO PRN (23:00)
[2022-04-03] MEDS ORDERED: ACETAMINOPHEN 325 MG TAB PO PRN (23:00)
[2022-04-03] MEDS ORDERED: LABETALOL 20MG SYG IV PRN (23:00)
[2022-04-03] MEDS ORDERED: HYDROMORPHONE 1 MG INJ IVP STA (23:18)
[2022-04-04 04:00] VITALS: BP 157/94
[2022-04-04] MEDS ORDERED: HYDR-4068 PO (04:49)
[2022-04-04] MEDS: MORPHINE 4 MG SYG IVP PRN ×2 (04:54→10:19)
[2022-04-04] MEDS: INSULIN HUMULIN R 100 UNIT/ML 3ML SQ SCH ×4 (06:00→20:18)
[2022-04-04 06:26] LABS: BASOPHILS % (AUTO) 0.3 % (0.0-5.0); EOSINOPHILS % (AUTO) 0.6 % (0.0-8.0); LYMPHOCYTES % (AUTO) 16.7 % (21.0-51.0); MEAN CORPUSCULAR HGB CONC 32.8 g/dL (32.0-36.0); MEAN CORPUSCULAR VOLUME 88.4 fL (79-99); MONOCYTES % (AUTO) 7.2 % (3.0-13.0); NEUTROPHILS % (AUTO) 74.7 % (40.0-77.0); PLATELET COUNT (AUTO) 355 K/uL (130-400); RED BLOOD CELL COUNT(AUTO) 3.62 MIL/uL (4.00-5.50); RED CELL DISTRIBUTION WIDTH 13.6 % (11.0-15.5); WHITE BLOOD COUNT (AUTO) 11.8 K/uL (4.8-10.8)
[2022-04-04 06:45] LABS: MAGNESIUM 1.6 mg/dL (1.80-2.40); PHOSPHORUS 3.3 mg/dL (2.5-4.9)
[2022-04-04 08:00] VITALS: BP 140/69
[2022-04-04] MEDS: TRAMADOL HCL 50 MG TABLET PO PRN (08:22)
[2022-04-04] MEDS: KCL 20 MEQ ERTAB PO PRN ×3 (08:23→19:03)
[2022-04-04] MEDS: ENOXAPARIN SODIUM 40 MG/0.4 ML SYRINGE SQ SCH (08:25)
[2022-04-04 09:46] LABS: CREATININE 0.5 mg/dL (0.5-1.5)
[2022-04-04 12:00] VITALS: BP 126/55
[2022-04-04] MEDS: MORPHINE 2 MG SYG IVP PRN ×2 (13:42→19:00)
[2022-04-04] MEDS: 0.9%NACL 1000ML 1,000 ML IV SCH ×2 (13:47)
[2022-04-04 16:00] VITALS: BP 139/68
[2022-04-04] MEDS ORDERED: KETOROLAC 15MG/ML VIAL (15MG/ML) IV PRN (19:00)
[2022-04-04] MEDS: ***HM*** (Cholecalciferol (Vitamin D3) (Vitamin D3) 50 MCG) PO SCH (20:10)
[2022-04-04] MEDS: GABAPENTIN 300 MG CAPSULE PO SCH (20:17)
[2022-04-04 20:44] VITALS: BP 129/66
[2022-04-04] MEDS ORDERED: LOSARTAN 100 MG TABLET PO SCH (21:00)
[2022-04-04] MEDS ORDERED: CYCLOBENZAPRINE HCL 10 MG TABLET PO SCH (21:00)
[2022-04-04] MEDS ORDERED: HYDROCHLOROTHIAZIDE 25 MG TABLET PO SCH (21:00)
[2022-04-04] MEDS ORDERED: MELATONIN 5 MG PO SCH (21:00)
[2022-04-04 23:42] VITALS: BP 94/48
[2022-04-05] MEDS: 0.9%NACL 1000ML 1,000 ML IV SCH (01:28)
[2022-04-05] MEDS: MORPHINE 2 MG SYG IVP PRN ×2 (03:30→08:01)
[2022-04-05 04:08] VITALS: BP 126/64
[2022-04-05 04:55] LABS: HEMATOCRIT 33.7 % (36-48); MEAN CORPUSCULAR HEMOGLOBIN 28.1 pg (27.0-33.0); MEAN CORPUSCULAR HGB CONC 31.8 g/dL (32.0-36.0); MEAN CORPUSCULAR VOLUME 88.5 fL (79-99); RED BLOOD CELL COUNT(AUTO) 3.81 MIL/uL (4.00-5.50); RED CELL DISTRIBUTION WIDTH 14.3 % (11.0-15.5); WHITE BLOOD COUNT (AUTO) 10.4 K/uL (4.8-10.8)
[2022-04-05 05:09] LABS: CREATININE 0.5 mg/dL (0.5-1.5); POTASSIUM 3.4 mmol/L (3.5-5.1)
[2022-04-05] MEDS: KCL 20 MEQ ERTAB PO PRN (05:32)
[2022-04-05] MEDS: INSULIN HUMULIN R 100 UNIT/ML 3ML SQ SCH ×2 (05:33→11:30)
[2022-04-05] MEDS: TRAMADOL HCL 50 MG TABLET PO PRN ×2 (06:22→12:17)
[2022-04-05] MEDS: GABAPENTIN 300 MG CAPSULE PO SCH (07:57)
[2022-04-05 08:00] VITALS: BP 152/80
[2022-04-05] MEDS: ENOXAPARIN SODIUM 40 MG/0.4 ML SYRINGE SQ SCH (08:00)
[2022-04-05] MEDS: ***HM*** (Cholecalciferol (Vitamin D3) (Vitamin D3) 50 MCG) PO SCH (08:01)
[2022-04-05] MEDS ORDERED: LOSA100T58 PO (08:59)
[2022-04-05 12:00] VITALS: BP 121/46
== END 2022-04-05 13:45 | disposition home or self-care (01) ==
LOC: EDH 19:15 → EDHIP 22:40 → 4BH 04-04 03:50
PROVIDERS: ADMIT Internal Medicine; ATTEND Internal Medicine
DX: S22.31XA Fracture of one rib, right side, initial encounter for closed fracture (principal); S22.20XA Unspecified fracture of sternum, initial encounter for closed fracture; S42.009A Fracture of unspecified part of unspecified clavicle, initial encounter for closed fracture; S00.03XA Contusion of scalp, initial encounter; E86.0 Dehydration; E87.1 Hypo-osmolality and hyponatremia; E87.6 Hypokalemia; I10 Essential (primary) hypertension; E03.9 Hypothyroidism, unspecified; G89.29 Other chronic pain; K29.70 Gastritis, unspecified, without bleeding; M19.90 Unspecified osteoarthritis, unspecified site; M81.0 Age-related osteoporosis without current pathological fracture; Z91.81 History of falling; Z96.619 Presence of unspecified artificial shoulder joint; Z96.649 Presence of unspecified artificial hip joint; Z96.651 Presence of right artificial knee joint; W18.30XA Fall on same level, unspecified, initial encounter; Y93.89 Activity, other specified; Y92.89 Other specified places as the place of occurrence of the external cause; Y99.8 Other external cause status
CPT/HCPCS: 96361 ×3; 96375 ×3; 99285; 80053; 85025 ×2; 82948 ×7; 81001; 36415 ×3; 73060; 73030; 70450; 72125; 71250; 96376 ×2; 96372 ×2; 96365; 96366; 83735; 84100; 80048 ×2; 85027; 97161; 97039; G0378 ×38; J2405 ×2; J2270 ×3; J3475; J1170; J1650 ×2

== ENCOUNTER 2022-07-10 18:46 | Inpatient (IN) | payer OTHER ==
[~2022-07-10] VITALS: Ht 154.9 cm; Wt 78.4 kg
[~2022-07-10 18:46] MED LIST changes: -AEC81 PO; +ASPI-1005 PO; +FAMO20TA8 PO; +FURO40TA7 PO; -HYDR-4060 PO; +HYDR-4068 PO; -LEVO50TA6 PO; +LISI5TAB21 PO; -LOSA1TAB54 PO; +MELA5CAP PO; +METO25TA3 PO; -NAPR-1023 PO; -NAPR375T6 PO; +POTA-202 PO; +SIMV-43 PO; +SULF1TAB42 PO
[2022-07-10] MEDS ORDERED: 0.9%NACL 1000ML 1,434 ML IV ONE (19:00)
[2022-07-10 19:26] LABS: BASOPHILS % (AUTO) 0.1 % (0.0-5.0); EOSINOPHILS % (AUTO) 0.1 % (0.0-8.0); HEMATOCRIT 32.4 % (36-48); LYMPHOCYTES % (AUTO) 2.8 % (21.0-51.0); MEAN CORPUSCULAR HEMOGLOBIN 26.9 pg (27.0-33.0); MEAN CORPUSCULAR HGB CONC 31.2 g/dL (32.0-36.0); MEAN CORPUSCULAR VOLUME 86.4 fL (79-99); MONOCYTES % (AUTO) 0.3 % (3.0-13.0); NEUTROPHILS % (AUTO) 96.4 % (40.0-77.0); PLATELET COUNT (AUTO) 288 K/uL (130-400); RED BLOOD CELL COUNT(AUTO) 3.75 MIL/uL (4.00-5.50); RED CELL DISTRIBUTION WIDTH 15.2 % (11.0-15.5); WHITE BLOOD COUNT (AUTO) 7.1 K/uL (4.8-10.8)
[2022-07-10] MEDS ORDERED: ZOSYN 3.375GM +NS 50ML IVPB ONE (19:30)
[2022-07-10] MEDS ORDERED: ACETAMINOPHEN 500 MG TABLET PO ONE (19:30)
[2022-07-10 19:42] LABS: INR 0.95 (0.85-1.15); PROTHROMBIN TIME 10.4 SEC (9.6-11.6)
[2022-07-10 19:43] LABS: CREATININE 0.9 mg/dL (0.5-1.5); PARTIAL THROMBOPLASTIN TIME 21.5 SEC (26.3-35.5); POTASSIUM 3.6 mmol/L (3.5-5.1)
[2022-07-10 19:48] LABS: ALBUMIN 3.7 g/dL (3.5-5.0); TOTAL PROTEIN, SERUM 8.4 g/dL (6.0-8.3)
[2022-07-10 20:06] LABS: B-TYPE NATRIURETIC PEPTIDE 166 pg/mL (0-100)
[2022-07-10] MEDS ORDERED: ADENOSINE 6MG VIAL IV ONE ×2 (21:00)
[2022-07-10 21:28] LABS: APPEARANCE,URINE CLOUDY (CLEAR); BILIRUBIN,URINE NEGATIVE (NEGATIVE); COLOR,URINE YELLOW (YELLOW); GLUCOSE, URINE (UA) NEGATIVE (NEGATIVE); KETONES,URINE NEGATIVE (NEGATIVE); LEUKOCYTE ESTERASE ,URINE 250 Leu/uL (NEGATIVE); NITRATE,URINE NEGATIVE (NEGATIVE); OCCULT BLOOD,URINE SMALL (NEGATIVE); PH,URINE 5.5 (5.0-8.0); PROTEIN,URINE 30 mg/dL (NEGATIVE); UROBILINOGEN,URINE 0.2 mg/dL (0.2-1.0)
[2022-07-10 21:36] LABS: BACTERIA,URINE RARE /HPF (None Seen); WBC,URINE 51-100 /HPF (0-1)
[2022-07-10] MEDS ORDERED: ACETAMINOPHEN 650 MG SUPPOSITORY RC PRN (23:00)
[2022-07-10] MEDS ORDERED: CLONIDINE HCL 0.1 MG TABLET PO PRN (23:00)
[2022-07-10] MEDS ORDERED: DOCUSATE SODIUM 100 MG CAP PO PRN (23:00)
[2022-07-10] MEDS ORDERED: ONDANSETRON 4MG INJ IVP PRN (23:00)
[2022-07-10] MEDS ORDERED: HYDRALAZINE 20MG/ML VIAL IV PRN (23:00)
[2022-07-10] MEDS ORDERED: LACTULOSE 20 GM/30 ML UDCUP PO PRN (23:00)
[2022-07-10] MEDS ORDERED: LABETALOL 20MG SYG IV PRN (23:00)
[2022-07-10] MEDS: LACTATED RINGERS 1000ML 1,000 ML IV SCH (23:08)
[2022-07-10] MEDS: MEROPENEM 1 GM VIAL IVP SCH (23:08)
[2022-07-10] MEDS ORDERED: LACTATED RINGERS 1000ML 1,000 ML IV ONE (23:30)
[2022-07-11] VITALS (9 sets, daily range): BP systolic 82–142; BP diastolic 34–75
[2022-07-11 00:07] LABS: ABG BASE EXCESS -2.5 mmol/L (-2.0-3.0); ABG HCO3 21.3 mmol/L (21.0-28.0); ABG OXYGEN SATURATION 95.8 % (95.0-99.0); ABG PCO2 33 mmHg (32-45)
[2022-07-11 03:57] LABS: BASOPHILS % (AUTO) 0.2 % (0.0-5.0); EOSINOPHILS % (AUTO) 0.2 % (0.0-8.0); HEMATOCRIT 27.5 % (36-48); LYMPHOCYTES % (AUTO) 1.7 % (21.0-51.0); MEAN CORPUSCULAR HEMOGLOBIN 27.2 pg (27.0-33.0); MEAN CORPUSCULAR VOLUME 84.9 fL (79-99); MONOCYTES % (AUTO) 1.3 % (3.0-13.0); NEUTROPHILS % (AUTO) 96.1 % (40.0-77.0); PLATELET COUNT (AUTO) 279 K/uL (130-400); RED BLOOD CELL COUNT(AUTO) 3.24 MIL/uL (4.00-5.50); RED CELL DISTRIBUTION WIDTH 15.4 % (11.0-15.5); WHITE BLOOD COUNT (AUTO) 15.4 K/uL (4.8-10.8)
[2022-07-11 03:59] LABS: CREATININE 0.9 mg/dL (0.5-1.5); MAGNESIUM 1.5 mg/dL (1.80-2.40); PHOSPHORUS 3.8 mg/dL (2.5-4.9); POTASSIUM 3.3 mmol/L (3.5-5.1)
[2022-07-11] MEDS ORDERED: POTASSIUM CHLORIDE 20MEQ/100ML 100 ML IV PRN (04:30)
[2022-07-11] MEDS ORDERED: LIDOCAINE HCL-MPF 1% 2ML VIAL IV PRN (04:30)
[2022-07-11] MEDS ORDERED: POTASSIUM CHLORIDE 10% ELIXIR 20 MEQ/15 ML UDCUP PO PRN (04:30)
[2022-07-11] MEDS: KCL 20 MEQ ERTAB PO PRN ×2 (04:50→08:25)
[2022-07-11] MEDS: MAGNESIUM 2GM PREMIX 50ML 50 ML IV PRN (04:51)
[2022-07-11] MEDS: ACETAMINOPHEN 325 MG TAB PO PRN ×3 (05:03→17:20)
[2022-07-11] MEDS: MEROPENEM 1 GM VIAL IVP SCH (08:30)
[2022-07-11] MEDS: PANTOPRAZOLE 40 MG TAB DR PO SCH (08:30)
[2022-07-11] MEDS ORDERED: LACTATED RINGERS 1000ML IV SCH ×2 (09:00→11:34)
[2022-07-11] MEDS: LACTATED RINGERS 1000ML 1,000 ML IV SCH ×2 (10:28→21:15)
[2022-07-11] MEDS ORDERED: ZOSYN 3.375GM +NS 50ML IVPB SCH (10:30)
[2022-07-11] MEDS ORDERED: 0.9%NACL 50ML IV SCH (11:00)
[2022-07-11] MEDS: MIDODRINE HCL 5 MG TABLET PO SCH ×3 (11:09→21:00)
[2022-07-11] MEDS ORDERED: ACETAMINOPHEN 325 MG TAB PO PRN ×2 (11:30)
[2022-07-11] MEDS: ZOSYN 3.375GM+NS 50ML 50 ML IVPB SCH ×2 (12:16→21:12)
[2022-07-11] MEDS: SENNOSIDES 8.6 MG TABLET PO SCH (13:00)
[2022-07-11] MEDS: POLYETHYLENE GLYCOL 3350 17 GM POWD.PACK PO SCH ×2 (13:00→21:11)
[2022-07-11] MEDS: HYDROCODONE/ACETAMINOPHEN 10/325 MG TAB PO PRN (14:17)
[2022-07-11] MEDS: CHOLECALCIFEROL 50 MCG PO SCH (21:00)
[2022-07-11] MEDS: MELATONIN PO SCH (21:00)
[2022-07-11] MEDS: AMITRIPTYLINE 10MG TAB PO SCH (21:10)
[2022-07-11] MEDS: SIMVASTATIN 20 MG TABLET PO SCH (21:11)
[2022-07-11] MEDS: GABAPENTIN 300 MG CAPSULE PO SCH (21:11)
[2022-07-11] MEDS: PHENAZOPYRIDINE HCL 200 MG TABLET PO PRN (21:18)
[2022-07-11] MEDS: KETOROLAC 15MG/ML VIAL (15MG/ML) IV PRN (21:19)
[2022-07-11] MEDS: TEMAZEPAM 15 MG CAPSULE PO PRN (21:21)
[2022-07-12] MEDS: MIDODRINE HCL 5 MG TABLET PO SCH ×4 (00:19→20:43)
[2022-07-12 00:24] VITALS: BP 89/56
[2022-07-12 03:24] VITALS: BP 114/58
[2022-07-12 03:35] LABS: BASOPHILS % (AUTO) 0.5 % (0.0-5.0); EOSINOPHILS % (AUTO) 1.8 % (0.0-8.0); HEMATOCRIT 26.7 % (36-48); LYMPHOCYTES % (AUTO) 9.1 % (21.0-51.0); MEAN CORPUSCULAR HEMOGLOBIN 27.2 pg (27.0-33.0); MEAN CORPUSCULAR HGB CONC 30.7 g/dL (32.0-36.0); MEAN CORPUSCULAR VOLUME 88.7 fL (79-99); MONOCYTES % (AUTO) 3.3 % (3.0-13.0); NEUTROPHILS % (AUTO) 84.8 % (40.0-77.0); PLATELET COUNT (AUTO) 218 K/uL (130-400); RED BLOOD CELL COUNT(AUTO) 3.01 MIL/uL (4.00-5.50); RED CELL DISTRIBUTION WIDTH 15.8 % (11.0-15.5); WHITE BLOOD COUNT (AUTO) 8.5 K/uL (4.8-10.8)
[2022-07-12 03:54] LABS: CREATININE 0.7 mg/dL (0.5-1.5)
[2022-07-12] MEDS: ZOSYN 3.375GM+NS 50ML 50 ML IVPB SCH ×3 (05:01→20:43)
[2022-07-12] MEDS: HYDROCODONE/ACETAMINOPHEN 10/325 MG TAB PO PRN ×2 (05:02→22:06)
[2022-07-12] MEDS ORDERED: METOPROLOL TARTRATE 1 MG/ML 5ML VIAL IV ONE ×2 (07:24→07:30)
[2022-07-12] MEDS: METOPROLOL TARTRATE 50 MG TAB PO SCH ×3 (07:49→22:06)
[2022-07-12] MEDS: LACTATED RINGERS 1000ML 1,000 ML IV SCH ×2 (07:50→17:37)
[2022-07-12 08:00] VITALS: BP 141/91
[2022-07-12] MEDS: CHOLECALCIFEROL 50 MCG PO SCH ×2 (09:00→20:00)
[2022-07-12] MEDS: POLYETHYLENE GLYCOL 3350 17 GM POWD.PACK PO SCH ×2 (09:15→20:00)
[2022-07-12] MEDS: GABAPENTIN 300 MG CAPSULE PO SCH ×2 (09:15→20:42)
[2022-07-12] MEDS: SENNOSIDES 8.6 MG TABLET PO SCH (09:15)
[2022-07-12] MEDS: FAMOTIDINE 20MG TAB PO SCH (09:15)
[2022-07-12] MEDS: PANTOPRAZOLE 40 MG TAB DR PO SCH (09:15)
[2022-07-12] MEDS: ASPIRIN 81MG CHEW TAB PO SCH (09:16)
[2022-07-12] MEDS: ENOXAPARIN SODIUM 40 MG/0.4 ML SYRINGE SQ SCH (09:17)
[2022-07-12 11:14] VITALS: BP 98/53
[2022-07-12] MEDS: ACETAMINOPHEN 325 MG TAB PO PRN (13:55)
[2022-07-12] MEDS: KETOROLAC 15MG/ML VIAL (15MG/ML) IV PRN ×2 (14:03→20:01)
[2022-07-12 16:00] VITALS: BP 115/67
[2022-07-12 19:15] VITALS: BP 109/60
[2022-07-12] MEDS: MELATONIN PO SCH (20:00)
[2022-07-12] MEDS: SIMVASTATIN 20 MG TABLET PO SCH (20:42)
[2022-07-12] MEDS: AMITRIPTYLINE 10MG TAB PO SCH (22:06)
[2022-07-12] MEDS: PHENAZOPYRIDINE HCL 200 MG TABLET PO PRN (22:06)
[2022-07-12] MEDS ORDERED: BENZOCAINE/MENTH/CETYLPYRD CL 1 EACH LOZENGE MM ONE (22:14)
[2022-07-12] MEDS: TEMAZEPAM 15 MG CAPSULE PO PRN (22:43)
[2022-07-13] VITALS (7 sets, daily range): BP systolic 120–147; BP diastolic 66–87
[2022-07-13] MEDS: HYDROCODONE/ACETAMINOPHEN 10/325 MG TAB PO PRN ×3 (05:07→23:16)
[2022-07-13] MEDS: ZOSYN 3.375GM+NS 50ML 50 ML IVPB SCH ×3 (05:07→21:09)
[2022-07-13] MEDS: LACTATED RINGERS 1000ML 1,000 ML IV SCH ×3 (05:09→19:51)
[2022-07-13] MEDS: METOPROLOL TARTRATE 50 MG TAB PO SCH ×4 (06:00→21:09)
[2022-07-13 06:58] LABS: BASOPHILS % (AUTO) 0.4 % (0.0-5.0); EOSINOPHILS % (AUTO) 1.1 % (0.0-8.0); HEMATOCRIT 28.7 % (36-48); LYMPHOCYTES % (AUTO) 12.8 % (21.0-51.0); MEAN CORPUSCULAR HEMOGLOBIN 26.8 pg (27.0-33.0); MEAN CORPUSCULAR HGB CONC 31.4 g/dL (32.0-36.0); MEAN CORPUSCULAR VOLUME 85.4 fL (79-99); MONOCYTES % (AUTO) 4.1 % (3.0-13.0); NEUTROPHILS % (AUTO) 81.1 % (40.0-77.0); PLATELET COUNT (AUTO) 273 K/uL (130-400); RED BLOOD CELL COUNT(AUTO) 3.36 MIL/uL (4.00-5.50); RED CELL DISTRIBUTION WIDTH 15.6 % (11.0-15.5); WHITE BLOOD COUNT (AUTO) 9.2 K/uL (4.8-10.8)
[2022-07-13 07:10] LABS: CREATININE 0.7 mg/dL (0.5-1.5); MAGNESIUM 1.7 mg/dL (1.80-2.40)
[2022-07-13] MEDS: POLYETHYLENE GLYCOL 3350 17 GM POWD.PACK PO SCH ×3 (07:23→21:13)
[2022-07-13] MEDS: SENNOSIDES 8.6 MG TABLET PO SCH (07:24)
[2022-07-13] MEDS: MIDODRINE HCL 5 MG TABLET PO SCH ×3 (09:00→20:06)
[2022-07-13] MEDS: CHOLECALCIFEROL 50 MCG PO SCH ×2 (09:00→21:00)
[2022-07-13] MEDS: ENOXAPARIN SODIUM 40 MG/0.4 ML SYRINGE SQ SCH (09:57)
[2022-07-13] MEDS: ASPIRIN 81MG CHEW TAB PO SCH (09:57)
[2022-07-13] MEDS: FAMOTIDINE 20MG TAB PO SCH (09:57)
[2022-07-13] MEDS: PANTOPRAZOLE 40 MG TAB DR PO SCH (09:57)
[2022-07-13] MEDS: GABAPENTIN 300 MG CAPSULE PO SCH ×2 (09:58→21:09)
[2022-07-13] MEDS: PHENAZOPYRIDINE HCL 200 MG TABLET PO PRN (12:14)
[2022-07-13] MEDS ORDERED: TAMSULOSIN HCL 0.4 MG CAP.ER.24H ONE (12:54)
[2022-07-13] MEDS: 0.9%NACL 1000ML 1,000 ML IV SCH ×2 (12:56→21:30)
[2022-07-13] MEDS: MELATONIN PO SCH (21:00)
[2022-07-13] MEDS: AMITRIPTYLINE 10MG TAB PO SCH (21:09)
[2022-07-13] MEDS: TEMAZEPAM 15 MG CAPSULE PO PRN (21:09)
[2022-07-13] MEDS: SIMVASTATIN 20 MG TABLET PO SCH (21:09)
[2022-07-14] MEDS ORDERED: METOPROLOL TARTRATE 1 MG/ML 5ML VIAL IV ONE ×2 (01:45→02:00)
[2022-07-14 04:02] LABS: BASOPHILS % (AUTO) 0.5 % (0.0-5.0); EOSINOPHILS % (AUTO) 1.6 % (0.0-8.0); HEMATOCRIT 26.8 % (36-48); LYMPHOCYTES % (AUTO) 19.2 % (21.0-51.0); MEAN CORPUSCULAR HEMOGLOBIN 26.8 pg (27.0-33.0); MEAN CORPUSCULAR HGB CONC 31.3 g/dL (32.0-36.0); MEAN CORPUSCULAR VOLUME 85.6 fL (79-99); MONOCYTES % (AUTO) 8.2 % (3.0-13.0); NEUTROPHILS % (AUTO) 70.1 % (40.0-77.0); PLATELET COUNT (AUTO) 265 K/uL (130-400); RED BLOOD CELL COUNT(AUTO) 3.13 MIL/uL (4.00-5.50); RED CELL DISTRIBUTION WIDTH 15.5 % (11.0-15.5); WHITE BLOOD COUNT (AUTO) 7.4 K/uL (4.8-10.8)
[2022-07-14 04:17] LABS: CREATININE 0.6 mg/dL (0.5-1.5); MAGNESIUM 1.5 mg/dL (1.80-2.40); POTASSIUM 3.4 mmol/L (3.5-5.1)
[2022-07-14] MEDS: MAGNESIUM 2GM PREMIX 50ML 50 ML IV PRN (04:25)
[2022-07-14 04:53] VITALS: BP 113/75
[2022-07-14] MEDS: METOPROLOL TARTRATE 50 MG TAB PO SCH ×3 (06:15→21:10)
[2022-07-14] MEDS: ZOSYN 3.375GM+NS 50ML 50 ML IVPB SCH ×3 (06:15→21:10)
[2022-07-14] MEDS: 0.9%NACL 1000ML 1,000 ML IV SCH ×3 (06:16→21:11)
[2022-07-14] MEDS: KCL 20 MEQ ERTAB PO PRN ×2 (06:16→09:44)
[2022-07-14 07:51] VITALS: BP 111/66
[2022-07-14] MEDS: PANTOPRAZOLE 40 MG TAB DR PO SCH (08:24)
[2022-07-14] MEDS: FAMOTIDINE 20MG TAB PO SCH (08:24)
[2022-07-14] MEDS: POLYETHYLENE GLYCOL 3350 17 GM POWD.PACK PO SCH ×2 (08:24→20:14)
[2022-07-14] MEDS: SENNOSIDES 8.6 MG TABLET PO SCH (08:24)
[2022-07-14] MEDS: ASPIRIN 81MG CHEW TAB PO SCH (08:25)
[2022-07-14] MEDS: GABAPENTIN 300 MG CAPSULE PO SCH ×2 (08:25→21:10)
[2022-07-14] MEDS: TAMSULOSIN HCL 0.4 MG CAP.ER.24H PO SCH (08:25)
[2022-07-14] MEDS: CHOLECALCIFEROL 50 MCG PO SCH ×2 (08:25→20:14)
[2022-07-14] MEDS: ENOXAPARIN SODIUM 40 MG/0.4 ML SYRINGE SQ SCH (08:26)
[2022-07-14] MEDS: KETOROLAC 15MG/ML VIAL (15MG/ML) IV PRN ×2 (08:27→16:07)
[2022-07-14] MEDS: MIDODRINE HCL 5 MG TABLET PO SCH (08:35)
[2022-07-14] MEDS: LACTATED RINGERS 1000ML 1,000 ML IV SCH ×3 (08:39→21:11)
[2022-07-14 11:39] VITALS: BP 122/67
[2022-07-14 16:16] VITALS: BP 101/55
[2022-07-14 20:00] VITALS: BP 128/52
[2022-07-14] MEDS: MELATONIN PO SCH (20:14)
[2022-07-14] MEDS: SIMVASTATIN 20 MG TABLET PO SCH (21:10)
[2022-07-14] MEDS: TEMAZEPAM 15 MG CAPSULE PO PRN (21:11)
[2022-07-14] MEDS: BENZOCAINE/MENTH/CETYLPYRD CL 1 EACH LOZENGE MM PRN (21:11)
[2022-07-14] MEDS: AMITRIPTYLINE 10MG TAB PO SCH (21:11)
[2022-07-14 23:00] VITALS: BP 131/72
[2022-07-14] MEDS ORDERED: ZOLPIDEM TARTRATE 5 MG TAB PO ONE (23:30)
[2022-07-15 04:02] LABS: BASOPHILS % (AUTO) 0.4 % (0.0-5.0); EOSINOPHILS % (AUTO) 2.7 % (0.0-8.0); HEMATOCRIT 26.9 % (36-48); LYMPHOCYTES % (AUTO) 21.9 % (21.0-51.0); MEAN CORPUSCULAR HEMOGLOBIN 26.8 pg (27.0-33.0); MEAN CORPUSCULAR HGB CONC 31.2 g/dL (32.0-36.0); MEAN CORPUSCULAR VOLUME 85.9 fL (79-99); MONOCYTES % (AUTO) 9.4 % (3.0-13.0); NEUTROPHILS % (AUTO) 64.8 % (40.0-77.0); PLATELET COUNT (AUTO) 285 K/uL (130-400); RED BLOOD CELL COUNT(AUTO) 3.13 MIL/uL (4.00-5.50); RED CELL DISTRIBUTION WIDTH 15.6 % (11.0-15.5); WHITE BLOOD COUNT (AUTO) 7.5 K/uL (4.8-10.8)
[2022-07-15 04:15] LABS: CREATININE 0.6 mg/dL (0.5-1.5); MAGNESIUM 1.8 mg/dL (1.80-2.40); POTASSIUM 3.3 mmol/L (3.5-5.1)
[2022-07-15 04:16] VITALS: BP 139/84
[2022-07-15 04:58] LABS: B-TYPE NATRIURETIC PEPTIDE 546 pg/mL (0-100)
[2022-07-15] MEDS: ZOSYN 3.375GM+NS 50ML 50 ML IVPB SCH ×3 (05:25→20:55)
[2022-07-15] MEDS: KCL 20 MEQ ERTAB PO PRN ×3 (05:25→11:41)
[2022-07-15] MEDS: METOPROLOL TARTRATE 50 MG TAB PO SCH ×3 (05:25→22:41)
[2022-07-15 08:30] VITALS: BP 142/70
[2022-07-15] MEDS: SENNOSIDES 8.6 MG TABLET PO SCH (08:31)
[2022-07-15] MEDS: TAMSULOSIN HCL 0.4 MG CAP.ER.24H PO SCH (08:31)
[2022-07-15] MEDS: GABAPENTIN 300 MG CAPSULE PO SCH ×2 (08:32→20:55)
[2022-07-15] MEDS: ASPIRIN 81MG CHEW TAB PO SCH (08:32)
[2022-07-15] MEDS: PANTOPRAZOLE 40 MG TAB DR PO SCH (08:32)
[2022-07-15] MEDS: FAMOTIDINE 20MG TAB PO SCH (08:32)
[2022-07-15] MEDS: CHOLECALCIFEROL 50 MCG PO SCH ×2 (08:33→20:59)
[2022-07-15] MEDS: POLYETHYLENE GLYCOL 3350 17 GM POWD.PACK PO SCH ×3 (08:33→21:00)
[2022-07-15] MEDS: ENOXAPARIN SODIUM 40 MG/0.4 ML SYRINGE SQ SCH (08:33)
[2022-07-15] MEDS: BENZOCAINE/MENTH/CETYLPYRD CL 1 EACH LOZENGE MM PRN ×2 (08:55→11:16)
[2022-07-15] MEDS: MAGNESIUM 2GM PREMIX 50ML 50 ML IV PRN (11:40)
[2022-07-15] MEDS: HYDROCODONE/ACETAMINOPHEN 10/325 MG TAB PO PRN ×2 (11:50→23:15)
[2022-07-15 12:35] VITALS: BP 113/63
[2022-07-15] MEDS ORDERED: GUAIFENESIN-DM 200/20 MG 10 ML PO PRN (13:30)
[2022-07-15] MEDS: LACTATED RINGERS 1000ML 1,000 ML IV SCH ×2 (15:29→19:21)
[2022-07-15 17:03] VITALS: BP 108/54
[2022-07-15 20:16] VITALS: BP 137/68
[2022-07-15] MEDS: AMITRIPTYLINE 10MG TAB PO SCH (20:55)
[2022-07-15] MEDS: MELATONIN PO SCH (20:55)
[2022-07-15] MEDS: SIMVASTATIN 20 MG TABLET PO SCH (21:04)
[2022-07-15] MEDS: TEMAZEPAM 15 MG CAPSULE PO PRN (22:41)
[2022-07-16 00:21] VITALS: BP 138/73
[2022-07-16] MEDS ORDERED: ALPRAZOLAM 0.25 MG TABLET PO ONE (00:30)
[2022-07-16] MEDS ORDERED: ALPRAZOLAM 0.25 MG TABLET PO SCH (01:30)
[2022-07-16 03:59] LABS: BASOPHILS % (AUTO) 0.6 % (0.0-5.0); HEMATOCRIT 26.9 % (36-48); LYMPHOCYTES % (AUTO) 24.4 % (21.0-51.0); MEAN CORPUSCULAR HEMOGLOBIN 26.6 pg (27.0-33.0); MEAN CORPUSCULAR HGB CONC 30.9 g/dL (32.0-36.0); MEAN CORPUSCULAR VOLUME 86.2 fL (79-99); MONOCYTES % (AUTO) 11.7 % (3.0-13.0); NEUTROPHILS % (AUTO) 59.9 % (40.0-77.0); PLATELET COUNT (AUTO) 304 K/uL (130-400); RED BLOOD CELL COUNT(AUTO) 3.12 MIL/uL (4.00-5.50); RED CELL DISTRIBUTION WIDTH 15.6 % (11.0-15.5); WHITE BLOOD COUNT (AUTO) 8.1 K/uL (4.8-10.8)
[2022-07-16 04:15] LABS: CREATININE 0.6 mg/dL (0.5-1.5); MAGNESIUM 1.8 mg/dL (1.80-2.40); POTASSIUM 3.8 mmol/L (3.5-5.1)
[2022-07-16 04:32] VITALS: BP 126/67
[2022-07-16] MEDS: ZOSYN 3.375GM+NS 50ML 50 ML IVPB SCH (04:52)
[2022-07-16] MEDS: MAGNESIUM 2GM PREMIX 50ML 50 ML IV PRN (04:54)
[2022-07-16] MEDS: METOPROLOL TARTRATE 50 MG TAB PO SCH (05:20)
[2022-07-16] MEDS: ENOXAPARIN SODIUM 40 MG/0.4 ML SYRINGE SQ SCH (08:13)
[2022-07-16] MEDS: HYDROCODONE/ACETAMINOPHEN 10/325 MG TAB PO PRN (08:13)
[2022-07-16] MEDS: POLYETHYLENE GLYCOL 3350 17 GM POWD.PACK PO SCH (08:13)
[2022-07-16] MEDS: CHOLECALCIFEROL 50 MCG PO SCH (08:14)
[2022-07-16] MEDS: TAMSULOSIN HCL 0.4 MG CAP.ER.24H PO SCH (08:14)
[2022-07-16] MEDS: SENNOSIDES 8.6 MG TABLET PO SCH (08:14)
[2022-07-16] MEDS: ASPIRIN 81MG CHEW TAB PO SCH (08:14)
[2022-07-16] MEDS: GABAPENTIN 300 MG CAPSULE PO SCH (08:14)
[2022-07-16] MEDS: FAMOTIDINE 20MG TAB PO SCH (08:15)
[2022-07-16] MEDS: PANTOPRAZOLE 40 MG TAB DR PO SCH (08:16)
[2022-07-16 08:31] VITALS: BP 132/73
[2022-07-16] MEDS ORDERED: SENN8.6T32 PO (09:01)
[2022-07-16] MEDS ORDERED: METO50 PO (09:01)
[2022-07-16] MEDS ORDERED: AMOX-426 PO (09:01)
[2022-07-16] MEDS ORDERED: TAMS-1 PO (09:01)
[2022-07-16] MEDS ORDERED: POLY17PO4 PO (09:01)
== END 2022-07-16 11:00 | disposition home or self-care (01) | DRG 871 ==
LOC: EDH 18:46 → EDHIP 22:43 → OBSVTOIN 22:43 → EDHIP 23:27 → 2AH 07-11 02:01
PROVIDERS: ADMIT Internal Medicine; ATTEND Internal Medicine
DX: A41.9 Sepsis, unspecified organism (principal); G93.41 Metabolic encephalopathy; I50.41 Acute combined systolic (congestive) and diastolic (congestive) heart failure; I47.1 Supraventricular tachycardia; N12 Tubulo-interstitial nephritis, not specified as acute or chronic; G72.81 Critical illness myopathy; I13.0 Hypertensive heart and chronic kidney disease with heart failure and stage 1 through stage 4 chronic kidney disease, or unspecified chronic kidney disease; R65.20 Severe sepsis without septic shock; I95.9 Hypotension, unspecified; E86.0 Dehydration; N18.2 Chronic kidney disease, stage 2 (mild); E87.6 Hypokalemia; M19.90 Unspecified osteoarthritis, unspecified site; M06.9 Rheumatoid arthritis, unspecified; E66.9 Obesity, unspecified; N30.20 Other chronic cystitis without hematuria; N32.89 Other specified disorders of bladder; K59.03 Drug induced constipation; K58.1 Irritable bowel syndrome with constipation; T40.605A Adverse effect of unspecified narcotics, initial encounter; K57.90 Diverticulosis of intestine, part unspecified, without perforation or abscess without bleeding; G89.4 Chronic pain syndrome; E78.5 Hyperlipidemia, unspecified; F19.90 Other psychoactive substance use, unspecified, uncomplicated; D50.9 Iron deficiency anemia, unspecified; S42.001A Fracture of unspecified part of right clavicle, initial encounter for closed fracture; W18.39XA Other fall on same level, initial encounter; Y93.89 Activity, other specified; Z68.29 Body mass index [BMI] 29.0-29.9, adult; Y92.89 Other specified places as the place of occurrence of the external cause; Y99.8 Other external cause status; Z79.899 Other long term (current) drug therapy; Z82.49 Family history of ischemic heart disease and other diseases of the circulatory system; Z83.3 Family history of diabetes mellitus; Z86.73 Personal history of transient ischemic attack (TIA), and cerebral infarction without residual deficits
CPT/HCPCS: 36415; 36600; 70450; 71045; 76770; 76856; 80048; 80053; 81001; 82435; 82533; 82550; 82803; 82947; 82948; 83605; 83721; 83735; 83880; 84100; 84132; 84145; 84295; 84443; 84484; 85018; 85025; 85610; 85730; 87040; 87088; 93005; 93306; 93356; 97039; G0378; J0153; J1650; J1885; J2185; J2543; J3475; J3490; J7030; J7120

== ENCOUNTER 2022-08-02 14:47 | Emergency (ER) | payer OTHER ==
[~2022-08-02] VITALS: Ht 154.9 cm; Wt 66.2 kg
[~2022-08-02 14:47] MED LIST changes: +AMOX-426 PO; -CYCL5TAB PO; -DENO60DI SQ; +LIDOP TP; +LINA145C PO; -METO25TA3 PO; +METO50 PO; +POLY17PO4 PO; -SULF1TAB42 PO; +TAMS-1 PO
[2022-08-02] MEDS ORDERED: 0.9%NACL 1000ML 1,000 ML IV ONE (16:30)
[2022-08-02 16:43] LABS: BASOPHILS % (AUTO) 0.7 % (0.0-5.0); EOSINOPHILS % (AUTO) 1.3 % (0.0-8.0); HEMATOCRIT 27.3 % (36-48); LYMPHOCYTES % (AUTO) 13.5 % (21.0-51.0); MEAN CORPUSCULAR HEMOGLOBIN 26.1 pg (27.0-33.0); MEAN CORPUSCULAR HGB CONC 31.5 g/dL (32.0-36.0); MEAN CORPUSCULAR VOLUME 82.7 fL (79-99); MONOCYTES % (AUTO) 7.1 % (3.0-13.0); NEUTROPHILS % (AUTO) 76.8 % (40.0-77.0); PLATELET COUNT (AUTO) 484 K/uL (130-400); RED CELL DISTRIBUTION WIDTH 15.9 % (11.0-15.5); WHITE BLOOD COUNT (AUTO) 11.2 K/uL (4.8-10.8)
[2022-08-02 16:56] LABS: CREATININE 1.2 mg/dL (0.5-1.5); POTASSIUM 4.1 mmol/L (3.5-5.1)
[2022-08-02 17:06] LABS: ALBUMIN 3.2 g/dL (3.5-5.0); TOTAL PROTEIN, SERUM 8.1 g/dL (6.0-8.3)
[2022-08-02] MEDS ORDERED: ONDANSETRON 4MG INJ IVP ONE (17:30)
[2022-08-02] MEDS ORDERED: MORPHINE 2 MG SYG IVP ONE (17:30)
[2022-08-02 18:32] LABS: APPEARANCE,URINE CLEAR (CLEAR); BILIRUBIN,URINE NEGATIVE (NEGATIVE); COLOR,URINE LIGHT-YELLOW (YELLOW); GLUCOSE, URINE (UA) NEGATIVE (NEGATIVE); KETONES,URINE NEGATIVE (NEGATIVE); LEUKOCYTE ESTERASE ,URINE NEGATIVE Leu/uL (NEGATIVE); NITRATE,URINE NEGATIVE (NEGATIVE); OCCULT BLOOD,URINE NEGATIVE (NEGATIVE); PH,URINE 5.5 (5.0-8.0); PROTEIN,URINE NEGATIVE (NEGATIVE); UROBILINOGEN,URINE 0.2 mg/dL (0.2-1.0)
[2022-08-02 18:54] LABS: BACTERIA,URINE RARE /HPF (None Seen); MUCUS,URINE RARE LPF (None Seen); SQUAMOUS EPITHELIAL CELL,UR RARE /HPF (0-2)
[2022-08-02] MEDS ORDERED: LIDO1ADH82 TP (20:51)
[2022-08-02] MEDS ORDERED: LIDOCAINE 5% TOPICAL PATCH TP ONE (21:30)
[2022-08-02 21:32] VITALS: BP 96/58
== END 2022-08-02 21:40 | disposition home or self-care (01) ==
LOC: EDH 14:47
DX: M54.50 Low back pain, unspecified (principal); M19.90 Unspecified osteoarthritis, unspecified site; Z79.82 Long term (current) use of aspirin; Z79.899 Other long term (current) drug therapy; Z88.5 Allergy status to narcotic agent; I10 Essential (primary) hypertension; W18.39XA Other fall on same level, initial encounter; Y93.89 Activity, other specified; Y92.89 Other specified places as the place of occurrence of the external cause; Y99.8 Other external cause status
CPT/HCPCS: 99285; 96374; 96361; 96375; 80053; 85025; 83605; 81001; 36415; 73521; 72100; 72220; 93005; 72170; J7030; J2405

== ENCOUNTER 2022-12-27 10:05 | Emergency (ER) | payer OTHER ==
[~2022-12-27] VITALS: Ht 162.6 cm; Wt 68.0 kg
[~2022-12-27 10:05] MED LIST changes: -AMIT10TA6 PO; -AMOX-426 PO; -ASPI-1005 PO; +ASPI-1197 PO; -CHOL200013 PO; -FAMO20TA8 PO; +FURO40TA5 PO; -FURO40TA7 PO; -GABA300C PO; +GABA600T10 PO; -HYDR-4068 PO; -LIDOP TP; -LINA145C PO; -MELA5CAP PO; +METO-391 PO; -METO50 PO; +PERCT10 PO; -POLY17PO4 PO; -POTA-202 PO
[2022-12-27 11:37] LABS: CREATININE 0.6 mg/dL (0.5-1.5); POTASSIUM 3.7 mmol/L (3.5-5.1)
[2022-12-27 11:42] LABS: ALBUMIN 3.8 g/dL (3.5-5.0); BILIRUBIN,TOTAL 0.4 mg/dL (0.2-1.0); TOTAL PROTEIN, SERUM 7.8 g/dL (6.0-8.3)
[2022-12-27 11:44] LABS: BASOPHILS # (AUTO) 0.07 K/uL (0.00-0.20); BASOPHILS % (AUTO) 0.8 % (0.0-5.0); EOSINOPHILS # (AUTO) 0.05 K/uL (0.00-0.70); EOSINOPHILS % (AUTO) 0.6 % (0.0-8.0); HEMATOCRIT 34.9 % (36-48); IMMATURE GRANULOCYTE ABSOLUTE 0.03 K/uL (0-1); LYMPHOCYTES # (AUTO) 1.9 K/uL (1.0-4.8); LYMPHOCYTES % (AUTO) 23.4 % (21.0-51.0); MEAN CORPUSCULAR HEMOGLOBIN 24.4 pg (27.0-33.0); MEAN CORPUSCULAR HGB CONC 30.1 g/dL (32.0-36.0); MEAN CORPUSCULAR VOLUME 81.2 fL (79-99); MONOCYTES # (AUTO) 0.7 K/uL (0.1-1.0); MONOCYTES % (AUTO) 8.8 % (3.0-13.0); NEUTROPHILS # (AUTO) 5.5 K/uL (1.8-7.7); PLATELET COUNT (AUTO) 378 K/uL (130-400); WHITE BLOOD COUNT (AUTO) 8.3 K/uL (4.8-10.8)
[2022-12-27] MEDS ORDERED: LIDOCAINE HCL 2% VISCOUS 15 ML UDCUP PO ONE (13:00)
[2022-12-27] MEDS ORDERED: MAG/ALUM/SIMETH 30 ML UDCUP PO ONE (13:00)
[2022-12-27 14:01] VITALS: BP 152/88; PULSE 77; RESP 16; O2SAT 100
== END 2022-12-27 14:05 | disposition home or self-care (01) ==
LOC: EDH 10:05
DX: K21.9 Gastro-esophageal reflux disease without esophagitis (principal); I10 Essential (primary) hypertension; M19.90 Unspecified osteoarthritis, unspecified site; Z79.82 Long term (current) use of aspirin; Z79.899 Other long term (current) drug therapy; Z88.5 Allergy status to narcotic agent
CPT/HCPCS: 36415; 71045; 80053; 83690; 83880; 84484; 85025; 93005

== ENCOUNTER 2023-02-11 14:48 | Emergency (ER) | payer OTHER ==
[~2023-02-11] VITALS: Ht 154.9 cm; Wt 68.5 kg
[2023-02-11 16:13] LABS: BASOPHILS # (AUTO) 0.03 K/uL (0.00-0.20); BASOPHILS % (AUTO) 0.4 % (0.0-5.0); EOSINOPHILS # (AUTO) 0.11 K/uL (0.00-0.70); EOSINOPHILS % (AUTO) 1.5 % (0.0-8.0); HEMATOCRIT 31.3 % (36-48); IMMATURE GRANULOCYTE ABSOLUTE 0.02 K/uL (0-1); LYMPHOCYTES # (AUTO) 1.9 K/uL (1.0-4.8); LYMPHOCYTES % (AUTO) 26.3 % (21.0-51.0); MEAN CORPUSCULAR HEMOGLOBIN 24.4 pg (27.0-33.0); MEAN CORPUSCULAR HGB CONC 30.4 g/dL (32.0-36.0); MEAN CORPUSCULAR VOLUME 80.5 fL (79-99); MONOCYTES # (AUTO) 0.5 K/uL (0.1-1.0); MONOCYTES % (AUTO) 7.6 % (3.0-13.0); NEUTROPHILS # (AUTO) 4.6 K/uL (1.8-7.7); NEUTROPHILS % (AUTO) 63.9 % (40.0-77.0); PLATELET COUNT (AUTO) 328 K/uL (130-400); RED BLOOD CELL COUNT(AUTO) 3.89 MIL/uL (4.00-5.50); RED CELL DISTRIBUTION WIDTH 18.1 % (11.0-15.5); WHITE BLOOD COUNT (AUTO) 7.2 K/uL (4.8-10.8)
[2023-02-11 16:16] LABS: APPEARANCE,URINE CLEAR (CLEAR); BILIRUBIN,URINE NEGATIVE (NEGATIVE); COLOR,URINE LIGHT-YELLOW (YELLOW); GLUCOSE, URINE (UA) NEGATIVE (NEGATIVE); KETONES,URINE NEGATIVE (NEGATIVE); LEUKOCYTE ESTERASE ,URINE NEGATIVE Leu/uL (NEGATIVE); NITRATE,URINE NEGATIVE (NEGATIVE); PH,URINE 6.5 (5.0-8.0); PROTEIN,URINE NEGATIVE (NEGATIVE); UROBILINOGEN,URINE 0.2 mg/dL (0.2-1.0)
[2023-02-11 16:23] LABS: ADD UA MICROSCOPIC YES
[2023-02-11 16:28] LABS: SQUAMOUS EPITHELIAL CELL,UR RARE /HPF (0-2)
[2023-02-11 16:42] LABS: ALBUMIN 3.5 g/dL (3.5-5.0); BILIRUBIN,TOTAL 0.3 mg/dL (0.2-1.0); CREATININE 0.5 mg/dL (0.5-1.5); POTASSIUM 4.2 mmol/L (3.5-5.1); TOTAL PROTEIN, SERUM 7.6 g/dL (6.0-8.3)
[2023-02-11 17:14] LABS: MAGNESIUM 1.8 mg/dL (1.80-2.40); THYROID STIMULATING HORMONE 1.66 uIU/mL (0.36-3.74)
[2023-02-11] MEDS ORDERED: MELO-106 PO (17:42)
[2023-02-11] MEDS ORDERED: KETOROLAC 30MG VIAL (30MG/ML) IVP ONE (18:00)
[2023-02-11] MEDS ORDERED: FAMOTIDINE 20MG VIAL IV ONE (18:00)
[2023-02-11 18:01] VITALS: BP 152/81; PULSE 90; RESP 18; O2SAT 99
== END 2023-02-11 18:29 | disposition home or self-care (01) ==
LOC: EDH 14:48
DX: R07.89 Other chest pain (principal); E78.00 Pure hypercholesterolemia, unspecified; I10 Essential (primary) hypertension; I25.10 Atherosclerotic heart disease of native coronary artery without angina pectoris; M19.90 Unspecified osteoarthritis, unspecified site; Z79.82 Long term (current) use of aspirin; Z79.899 Other long term (current) drug therapy; Z88.5 Allergy status to narcotic agent; Z95.1 Presence of aortocoronary bypass graft
CPT/HCPCS: 99285; 96374; 71045; 96375; 84443; 83735; 84484; 80053; 83880; 85025; 81001; 36415; 93005; J3490; J1885

== ENCOUNTER → 2023-03-05 | Outpatient (CLI) | payer OTHER ==
[~2023-03-05] MED LIST changes: +MELO-106 PO
[2023-03-05 12:36] LABS: HEMOGLOBIN A1C 5.3 % (4.0-6.0)
[2023-03-05 13:03] LABS: CHOLESTEROL 190 mg/dL (<200); HDL CHOLESTEROL 98 mg/dL (35-85); LDL DIRECT 86 mg/dL (0-99); TRIGLYCERIDES 109 mg/dL (30-200)
== END | disposition home or self-care (01) ==
LOC: LAB 09:51
PROVIDERS: ATTEND Student in an Organized Health Care Education/Training Program
DX: R94.31 Abnormal electrocardiogram [ECG] [EKG] (principal); E78.5 Hyperlipidemia, unspecified; Z79.899 Other long term (current) drug therapy
CPT/HCPCS: 36415; 80061; 83036

== ENCOUNTER → 2023-03-12 | Outpatient (CLI) | payer OTHER ==
[~2023-03-12] MED LIST changes: +REGADENOSON 0.4 MG/5 ML PF SYG IVP ONE
== END | disposition home or self-care (01) ==
LOC: SHCH 08:01
PROVIDERS: ATTEND Student in an Organized Health Care Education/Training Program
DX: R94.39 Abnormal result of other cardiovascular function study (principal); R07.9 Chest pain, unspecified
CPT/HCPCS: 78452; 96374; 93017; J2785; A9500 ×2

== ENCOUNTER → 2023-03-25 | Outpatient (CLI) | payer OTHER ==
[~2023-03-25] MED LIST changes: -REGADENOSON 0.4 MG/5 ML PF SYG IVP ONE
== END | disposition home or self-care (01) ==
LOC: RAH 13:05
PROVIDERS: ATTEND Student in an Organized Health Care Education/Training Program
DX: I34.81 Nonrheumatic mitral (valve) annulus calcification (principal); I51.7 Cardiomegaly
CPT/HCPCS: 93306

== ENCOUNTER 2023-05-04 12:59 | Observation (INO) | payer OTHER ==
[~2023-05-04] VITALS: Ht 154.9 cm; Wt 70.3 kg
[2023-05-04 13:27] LABS: HEMATOCRIT 33.3 % (36-48); MEAN CORPUSCULAR HEMOGLOBIN 27.1 pg (27.0-33.0); MEAN CORPUSCULAR HGB CONC 31.5 g/dL (32.0-36.0); MEAN CORPUSCULAR VOLUME 85.8 fL (79-99); PLATELET COUNT (AUTO) 300 K/uL (130-400); RED BLOOD CELL COUNT(AUTO) 3.88 MIL/uL (4.00-5.50); RED CELL DISTRIBUTION WIDTH 18.6 % (11.0-15.5); WHITE BLOOD COUNT (AUTO) 8.8 K/uL (4.8-10.8)
[2023-05-04 13:39] LABS: CREATININE 0.7 mg/dL (0.5-1.5); POTASSIUM 3.7 mmol/L (3.5-5.1)
[2023-05-04 13:47] LABS: BILIRUBIN,TOTAL 0.5 mg/dL (0.2-1.0); TOTAL PROTEIN, SERUM 6.8 g/dL (6.0-8.3)
[2023-05-04] MEDS: 0.9% NACL 500ML IV.SOLN 500 ML IV SCH ×16 (13:51→21:41)
[2023-05-04 14:20] LABS: MAGNESIUM 1.9 mg/dL (1.80-2.40)
[2023-05-04] MEDS ORDERED: DOCUSATE SODIUM 100 MG CAP PO PRN (16:30)
[2023-05-04] MEDS ORDERED: ONDANSETRON 4MG INJ IV PRN (16:30)
[2023-05-04] MEDS ORDERED: POLYETHYLENE GLYCOL 3350 17 GM POWD.PACK PO PRN (16:30)
[2023-05-04] MEDS ORDERED: HYDRALAZINE 25MG TABLET PO PRN (16:30)
[2023-05-04] MEDS ORDERED: LACTULOSE 20 GM/30 ML UDCUP PO PRN (16:30)
[2023-05-04] MEDS ORDERED: NITROGLYCERIN 0.4 MG SL TAB SL PRN (16:30)
[2023-05-04] MEDS ORDERED: ALPRAZOLAM 0.5 MG TABLET PO PRN (16:30)
[2023-05-04] MEDS ORDERED: DIPHENHYDRAMINE HCL 25 MG CAPSULE PO PRN (16:30)
[2023-05-04] MEDS ORDERED: DiphenhydrAMINE HCL 50 MG/ML VIAL IV PRN (16:30)
[2023-05-04] MEDS ORDERED: ZOLPIDEM TARTRATE 5 MG TAB PO PRN (16:30)
[2023-05-04] MEDS ORDERED: MAG/ALUM/SIMETH 30 ML UDCUP PO PRN (16:30)
[2023-05-04] MEDS ORDERED: MAGNESIUM 2GM PREMIX 50ML 50 ML IV PRN (16:30)
[2023-05-04] MEDS ORDERED: ACETAMINOPHEN 325 MG TAB PO PRN ×2 (16:30)
[2023-05-04] MEDS ORDERED: POTASSIUM CHLORIDE 10% ELIXIR 20 MEQ/15 ML UDCUP PO PRN (16:30)
[2023-05-04] MEDS ORDERED: GUAIFENESIN-DM 200/20 MG 10 ML PO PRN (16:30)
[2023-05-04] MEDS: INSULIN HUMULIN R 100 UNIT/ML 3ML SQ SCH ×2 (16:30→20:53)
[2023-05-04] MEDS ORDERED: POTASSIUM CHLORIDE 20MEQ/100ML 100 ML IV PRN ×2 (16:30)
[2023-05-04 17:40] VITALS: BP 97/56; PULSE 86; RESP 20; O2SAT 92
[2023-05-04 19:45] VITALS: O2SAT 97
[2023-05-04 20:10] VITALS: BP 115/49; PULSE 72; RESP 17
[2023-05-04] MEDS: TAMSULOSIN HCL 0.4 MG CAP.ER.24H PO SCH ×2 (20:55→21:02)
[2023-05-04] MEDS: METOPROLOL SUCCINATE 50 MG TAB.SR.24H PO SCH ×2 (20:56→21:02)
[2023-05-04] MEDS: 0.9%NACL 1000ML 1,000 ML IV SCH (21:02)
[2023-05-04] MEDS: OXYCODONE/ACETAMIN 5/325MG TAB PO SCH (21:04)
[2023-05-04] MEDS: FAMOTIDINE 20MG TAB PO SCH (21:04)
[2023-05-04] MEDS: GABAPENTIN 300 MG CAPSULE PO SCH (21:04)
[2023-05-04 23:54] VITALS: BP 92/58; PULSE 75; RESP 19
[2023-05-05] VITALS (9 sets, daily range): BP systolic 96–143; BP diastolic 46–74; PULSE 61–85; RESP 17–19; O2SAT 96
[2023-05-05 04:39] LABS: BASOPHILS # (AUTO) 0.02 K/uL (0.00-0.20); BASOPHILS % (AUTO) 0.2 % (0.0-5.0); EOSINOPHILS # (AUTO) 0.15 K/uL (0.00-0.70); EOSINOPHILS % (AUTO) 1.7 % (0.0-8.0); IMMATURE GRANULOCYTE ABSOLUTE 0.02 K/uL (0-1); LYMPHOCYTES # (AUTO) 1.6 K/uL (1.0-4.8); LYMPHOCYTES % (AUTO) 17.8 % (21.0-51.0); MEAN CORPUSCULAR HEMOGLOBIN 26.7 pg (27.0-33.0); MEAN CORPUSCULAR HGB CONC 31.3 g/dL (32.0-36.0); MEAN CORPUSCULAR VOLUME 85.4 fL (79-99); MONOCYTES # (AUTO) 0.9 K/uL (0.1-1.0); MONOCYTES % (AUTO) 10.6 % (3.0-13.0); NEUTROPHILS # (AUTO) 6.2 K/uL (1.8-7.7); NEUTROPHILS % (AUTO) 69.5 % (40.0-77.0); PLATELET COUNT (AUTO) 277 K/uL (130-400); RED BLOOD CELL COUNT(AUTO) 3.63 MIL/uL (4.00-5.50); RED CELL DISTRIBUTION WIDTH 18.5 % (11.0-15.5); WHITE BLOOD COUNT (AUTO) 8.9 K/uL (4.8-10.8)
[2023-05-05 05:21] LABS: B-TYPE NATRIURETIC PEPTIDE 118 pg/mL (0-100)
[2023-05-05 05:30] LABS: ALBUMIN 2.7 g/dL (3.5-5.0); BILIRUBIN,TOTAL 0.3 mg/dL (0.2-1.0); CREATININE 0.5 mg/dL (0.5-1.5); MAGNESIUM 1.8 mg/dL (1.80-2.40); PHOSPHORUS 3.6 mg/dL (2.5-4.9); POTASSIUM 3.3 mmol/L (3.5-5.1); THYROID STIMULATING HORMONE 2.65 uIU/mL (0.36-3.74); TOTAL PROTEIN, SERUM 6.2 g/dL (6.0-8.3)
[2023-05-05] MEDS: INSULIN HUMULIN R 100 UNIT/ML 3ML SQ SCH ×4 (06:05→20:43)
[2023-05-05] MEDS: 0.9%NACL 1000ML 1,000 ML IV SCH ×2 (08:38→17:08)
[2023-05-05] MEDS: OXYCODONE/ACETAMIN 5/325MG TAB PO SCH ×3 (08:39→20:38)
[2023-05-05] MEDS: ENOXAPARIN SODIUM 30 MG/0.3 ML SQ SCH (08:39)
[2023-05-05] MEDS: GABAPENTIN 300 MG CAPSULE PO SCH ×2 (08:39→20:39)
[2023-05-05] MEDS: ASPIRIN 81MG CHEW TAB PO SCH (08:40)
[2023-05-05] MEDS: FAMOTIDINE 20MG TAB PO SCH ×2 (08:40→20:39)
[2023-05-05] MEDS: KCL 20 MEQ ERTAB PO PRN ×2 (08:40→12:37)
[2023-05-05] MEDS: TAMSULOSIN HCL 0.4 MG CAP.ER.24H PO SCH (20:39)
[2023-05-05] MEDS: METOPROLOL SUCCINATE 50 MG TAB.SR.24H PO SCH (20:39)
[2023-05-05 22:29] LABS: APPEARANCE,URINE CLEAR (CLEAR); BILIRUBIN,URINE NEGATIVE (NEGATIVE); COLOR,URINE COLORLESS (YELLOW); GLUCOSE, URINE (UA) NEGATIVE (NEGATIVE); KETONES,URINE NEGATIVE (NEGATIVE); LEUKOCYTE ESTERASE ,URINE NEGATIVE Leu/uL (NEGATIVE); NITRATE,URINE NEGATIVE (NEGATIVE); PROTEIN,URINE NEGATIVE (NEGATIVE); UROBILINOGEN,URINE 0.2 mg/dL (0.2-1.0)
[2023-05-05 22:33] LABS: ADD UA MICROSCOPIC YES
[2023-05-05 22:40] LABS: RBC,URINE 0-1 /HPF (0-1)
[2023-05-05 22:41] LABS: BACTERIA,URINE None Seen /HPF (None Seen); SQUAMOUS EPITHELIAL CELL,UR Rare /HPF (0-2); WBC,URINE 0-1 /HPF (0-1)
[2023-05-06] VITALS (9 sets, daily range): BP systolic 108–145; BP diastolic 58–82; PULSE 66–81; RESP 16–20; O2SAT 98
[2023-05-06 03:39] LABS: BASOPHILS # (AUTO) 0.03 K/uL (0.00-0.20); BASOPHILS % (AUTO) 0.5 % (0.0-5.0); EOSINOPHILS % (AUTO) 1.6 % (0.0-8.0); IMMATURE GRANULOCYTE ABSOLUTE 0.03 K/uL (0-1); LYMPHOCYTES # (AUTO) 1.7 K/uL (1.0-4.8); LYMPHOCYTES % (AUTO) 26.8 % (21.0-51.0); MEAN CORPUSCULAR HEMOGLOBIN 26.6 pg (27.0-33.0); MEAN CORPUSCULAR HGB CONC 29.7 g/dL (32.0-36.0); MEAN CORPUSCULAR VOLUME 89.7 fL (79-99); MONOCYTES # (AUTO) 0.7 K/uL (0.1-1.0); MONOCYTES % (AUTO) 11.3 % (3.0-13.0); NEUTROPHILS # (AUTO) 3.7 K/uL (1.8-7.7); NEUTROPHILS % (AUTO) 59.3 % (40.0-77.0); PLATELET COUNT (AUTO) 296 K/uL (130-400); RED BLOOD CELL COUNT(AUTO) 3.79 MIL/uL (4.00-5.50); RED CELL DISTRIBUTION WIDTH 18.5 % (11.0-15.5); WHITE BLOOD COUNT (AUTO) 6.2 K/uL (4.8-10.8)
[2023-05-06 03:48] LABS: CREATININE 0.7 mg/dL (0.5-1.5); MAGNESIUM 1.7 mg/dL (1.80-2.40); POTASSIUM 3.9 mmol/L (3.5-5.1)
[2023-05-06 04:03] LABS: B-TYPE NATRIURETIC PEPTIDE 212 pg/mL (0-100)
[2023-05-06] MEDS: INSULIN HUMULIN R 100 UNIT/ML 3ML SQ SCH ×2 (06:04→11:30)
[2023-05-06] MEDS: OXYCODONE/ACETAMIN 5/325MG TAB PO SCH (09:26)
[2023-05-06] MEDS: GABAPENTIN 300 MG CAPSULE PO SCH (09:26)
[2023-05-06] MEDS: ASPIRIN 81MG CHEW TAB PO SCH (09:27)
[2023-05-06] MEDS: FAMOTIDINE 20MG TAB PO SCH (09:27)
[2023-05-06] MEDS: ENOXAPARIN SODIUM 30 MG/0.3 ML SQ SCH (09:27)
[2023-05-06] MEDS ORDERED: MAGNESIUM 2GM PREMIX 50ML 50 ML IV SCH (10:30)
[2023-05-06] MEDS: 0.9%NACL 1000ML 1,000 ML IV SCH (11:42)
[2023-05-06] MEDS ORDERED: METO-408 PO (15:28)
[2023-05-10] MEDS ORDERED: LINA145C PO (09:20)
[2023-05-10] MEDS ORDERED: CYCL-309 PO (09:20)
[2023-05-10] MEDS ORDERED: SIMV-43 PO (09:20)
[2023-05-10] MEDS ORDERED: OXYC1TAB12 PO (09:20)
[2023-05-10] MEDS ORDERED: LISI10TA24 PO (10:25)
[2023-05-10] MEDS ORDERED: METO25TA6 PO (10:25)
[2023-05-10] MEDS ORDERED: AMIT10TA6 PO (10:25)
== END 2023-05-06 18:10 | disposition home or self-care (01) ==
LOC: EDH 12:59 → EDHIP 16:15 → 4BH 17:40
PROVIDERS: ADMIT Internal Medicine Critical Care Medicine; ATTEND Internal Medicine Critical Care Medicine
DX: R42 Dizziness and giddiness (principal); G89.4 Chronic pain syndrome; I11.0 Hypertensive heart disease with heart failure; I50.9 Heart failure, unspecified; I25.10 Atherosclerotic heart disease of native coronary artery without angina pectoris; G92.8 Other toxic encephalopathy; G72.81 Critical illness myopathy; D50.9 Iron deficiency anemia, unspecified; S42.001G Fracture of unspecified part of right clavicle, subsequent encounter for fracture with delayed healing; F11.20 Opioid dependence, uncomplicated; R79.89 Other specified abnormal findings of blood chemistry; E66.3 Overweight; M79.601 Pain in right arm; I95.9 Hypotension, unspecified; E78.00 Pure hypercholesterolemia, unspecified; Z79.82 Long term (current) use of aspirin; Z96.649 Presence of unspecified artificial hip joint; Z68.29 Body mass index [BMI] 29.0-29.9, adult; Z95.1 Presence of aortocoronary bypass graft; Z88.5 Allergy status to narcotic agent; Z79.899 Other long term (current) drug therapy; Z90.49 Acquired absence of other specified parts of digestive tract; X58.XXXD Exposure to other specified factors, subsequent encounter
CPT/HCPCS: 96360; 96361 ×3; 99285; 83735 ×3; 84484; 80053 ×2; 83880 ×3; 85027; 87040 ×2; 82948 ×8; 83605; 36415 ×3; 71045; 70450; 93005; 84145; 96372 ×2; 84443; 82550; 84100; 85025 ×2; 81001; 70551; 80048; 82140; 93880; 97161; 97116; G0378 ×49; J1650 ×2

== ENCOUNTER → 2023-09-09 | Outpatient (CLI) | payer OTHER ==
[~2023-09-09] MED LIST changes: +AMIT10TA6 PO; -ASPI-1197 PO; +CIPR500T10 PO; +CYCL-309 PO; +DOXE10CA2 PO; -FURO40TA5 PO; -GABA600T10 PO; +LISI10TA24 PO; -LISI5TAB21 PO; -MELO-106 PO; -METO-391 PO; +METO-408 PO; +METR-172 PO; +OXYC1TAB12 PO; +PANT40GR PO; -PERCT10 PO; -SIMV-43 PO; -TAMS-1 PO
== END | disposition home or self-care (01) ==
LOC: RAH 13:57
PROVIDERS: ATTEND Family Medicine
DX: Z12.31 Encounter for screening mammogram for malignant neoplasm of breast (principal); R92.323 Mammographic fibroglandular density, bilateral breasts
CPT/HCPCS: 77067

== ENCOUNTER 2023-09-18 12:13 | Emergency (ER) | payer OTHER ==
[~2023-09-18] VITALS: Ht 154.9 cm; Wt 70.3 kg
[2023-09-18] MEDS: MORPHINE 2 MG SYG IVP ONE ×2 (13:12→15:05)
[2023-09-18] MEDS: ONDANSETRON 4MG INJ IVP ONE (13:12)
[2023-09-18 13:14] LABS: BASOPHILS # (AUTO) 0.04 K/uL (0.00-0.20); BASOPHILS % (AUTO) 0.6 % (0.0-5.0); EOSINOPHILS # (AUTO) 0.15 K/uL (0.00-0.70); EOSINOPHILS % (AUTO) 2.4 % (0.0-8.0); HEMATOCRIT 38.1 % (36-48); IMMATURE GRANULOCYTE ABSOLUTE 0.02 K/uL (0-1); LYMPHOCYTES % (AUTO) 31.7 % (21.0-51.0); MEAN CORPUSCULAR HEMOGLOBIN 26.9 pg (27.0-33.0); MEAN CORPUSCULAR HGB CONC 31.5 g/dL (32.0-36.0); MEAN CORPUSCULAR VOLUME 85.4 fL (79-99); MONOCYTES # (AUTO) 0.6 K/uL (0.1-1.0); MONOCYTES % (AUTO) 8.8 % (3.0-13.0); NEUTROPHILS # (AUTO) 3.5 K/uL (1.8-7.7); NEUTROPHILS % (AUTO) 56.2 % (40.0-77.0); PLATELET COUNT (AUTO) 226 K/uL (130-400); RED BLOOD CELL COUNT(AUTO) 4.46 MIL/uL (4.00-5.50); RED CELL DISTRIBUTION WIDTH 23.5 % (11.0-15.5); WHITE BLOOD COUNT (AUTO) 6.3 K/uL (4.8-10.8)
[2023-09-18 13:35] LABS: ALBUMIN 3.9 g/dL (3.5-5.0); BILIRUBIN,TOTAL 0.4 mg/dL (0.2-1.0); CREATININE 0.5 mg/dL (0.5-1.0); POTASSIUM 4.3 mmol/L (3.5-5.1); TOTAL PROTEIN, SERUM 7.6 g/dL (6.0-8.3)
[2023-09-18] MEDS ORDERED: KETO10TA2 PO (14:42)
[2023-09-18 14:48] VITALS: BP 135/72; PULSE 67; RESP 18; O2SAT 99
== END 2023-09-18 15:45 | disposition home or self-care (01) ==
LOC: EDH 12:13
DX: M79.661 Pain in right lower leg (principal); I10 Essential (primary) hypertension; M19.90 Unspecified osteoarthritis, unspecified site; Z79.899 Other long term (current) drug therapy; Z98.890 Other specified postprocedural states; Z88.8 Allergy status to other drugs, medicaments and biological substances
CPT/HCPCS: 99285; 93970; 93925; 96374; 96375; 80053; 85025; 36415; 96376; J2270 ×2; J2405; 96361

== ENCOUNTER → 2023-10-11 | Outpatient (CLI) | payer OTHER ==
[~2023-10-11] MED LIST changes: +GADOTERATE MEGLUMINE 10 MMOL/20 ML VIAL IV ONE; +KETO10TA2 PO
== END | disposition home or self-care (01) ==
LOC: RAH 08:56
PROVIDERS: ATTEND Internal Medicine Medical Oncology
DX: M89.8X6 Other specified disorders of bone, lower leg (principal)
CPT/HCPCS: 73720; A9575

== ENCOUNTER 2023-10-17 11:37 | Emergency (ER) | payer OTHER ==
[~2023-10-17] VITALS: Ht 154.9 cm; Wt 72.1 kg
[~2023-10-17 11:37] MED LIST changes: -ALBUHFA IH
[2023-10-17 12:39] LABS: BASOPHILS # (AUTO) 0.04 K/uL (0.00-0.20); BASOPHILS % (AUTO) 0.7 % (0.0-5.0); EOSINOPHILS # (AUTO) 0.09 K/uL (0.00-0.70); EOSINOPHILS % (AUTO) 1.5 % (0.0-8.0); HEMATOCRIT 39.7 % (36-48); IMMATURE GRANULOCYTE ABSOLUTE 0.01 K/uL (0-1); LYMPHOCYTES # (AUTO) 1.6 K/uL (1.0-4.8); LYMPHOCYTES % (AUTO) 25.9 % (21.0-51.0); MEAN CORPUSCULAR VOLUME 87.6 fL (79-99); MONOCYTES # (AUTO) 0.6 K/uL (0.1-1.0); MONOCYTES % (AUTO) 9.5 % (3.0-13.0); NEUTROPHILS # (AUTO) 3.8 K/uL (1.8-7.7); NEUTROPHILS % (AUTO) 62.2 % (40.0-77.0); PLATELET COUNT (AUTO) 248 K/uL (130-400); RED BLOOD CELL COUNT(AUTO) 4.53 MIL/uL (4.00-5.50); RED CELL DISTRIBUTION WIDTH 21.5 % (11.0-15.5); WHITE BLOOD COUNT (AUTO) 6.1 K/uL (4.8-10.8)
[2023-10-17 12:54] LABS: CREATININE 0.5 mg/dL (0.5-1.0); POTASSIUM 4.4 mmol/L (3.5-5.1)
[2023-10-17 12:58] LABS: ALBUMIN 3.6 g/dL (3.5-5.0); BILIRUBIN,TOTAL 0.3 mg/dL (0.2-1.0); TOTAL PROTEIN, SERUM 7.6 g/dL (6.0-8.3)
[2023-10-17 13:27] LABS: INR 1.01 (0.85-1.15); PARTIAL THROMBOPLASTIN TIME 24.4 SEC (26.3-35.5); PROTHROMBIN TIME 10.7 SEC (9.6-11.6)
[2023-10-17] MEDS ORDERED: ALBUHFA IH (15:31)
[2023-10-17 16:38] VITALS: BP 152/88; PULSE 80; RESP 14; O2SAT 99
== END 2023-10-17 16:39 | disposition home or self-care (01) ==
LOC: EDH 11:37
DX: R06.02 Shortness of breath (principal); I10 Essential (primary) hypertension; E78.00 Pure hypercholesterolemia, unspecified; M19.90 Unspecified osteoarthritis, unspecified site; Z79.899 Other long term (current) drug therapy; Z98.890 Other specified postprocedural states; Z88.5 Allergy status to narcotic agent
CPT/HCPCS: 36415; 71045; 80053; 83880; 84484; 85025; 85610; 85730; 93005

== ENCOUNTER → 2023-10-17 | Outpatient (CLI) | payer OTHER ==
[~2023-10-17] MED LIST changes: +ALBUHFA IH; -GADOTERATE MEGLUMINE 10 MMOL/20 ML VIAL IV ONE
== END | disposition home or self-care (01) ==
LOC: RAH 10:45
PROVIDERS: ATTEND Student in an Organized Health Care Education/Training Program
DX: I50.20 Unspecified systolic (congestive) heart failure (principal)
CPT/HCPCS: 93306

== ENCOUNTER → 2023-10-22 | Outpatient (CLI) | payer OTHER ==
[~2023-10-22] MED LIST changes: +ALBUHFA IH
== END | disposition home or self-care (01) ==
LOC: RAH 10-16 13:54
PROVIDERS: ATTEND Internal Medicine Medical Oncology
DX: M89.8X8 Other specified disorders of bone, other site (principal); Z79.899 Other long term (current) drug therapy
CPT/HCPCS: 78306; A9503 ×2

== ENCOUNTER 2024-01-16 17:03 | Emergency (ER) | payer OTHER ==
[~2024-01-16] VITALS: Ht 154.9 cm; Wt 74.8 kg
[2024-01-16 19:19] LABS: ADD UA MICROSCOPIC YES; APPEARANCE,URINE CLEAR (CLEAR); BILIRUBIN,URINE NEGATIVE (NEGATIVE); COLOR,URINE LIGHT-YELLOW (YELLOW); GLUCOSE, URINE (UA) NEGATIVE (NEGATIVE); KETONES,URINE NEGATIVE (NEGATIVE); LEUKOCYTE ESTERASE ,URINE 250 Leu/uL (NEGATIVE); NITRATE,URINE NEGATIVE (NEGATIVE); PROTEIN,URINE NEGATIVE (NEGATIVE); UROBILINOGEN,URINE 0.2 mg/dL (0.2-1.0)
[2024-01-16 19:21] LABS: BACTERIA,URINE RARE /HPF (None Seen); RBC,URINE 0-1 /HPF (0-1); SQUAMOUS EPITHELIAL CELL,UR RARE /HPF (0-2)
[2024-01-16 19:55] VITALS: BP 115/58; PULSE 66; RESP 14; TEMP 98.9; O2SAT 98
[2024-01-16] MEDS: ketOROlac 15MG/ML VIAL (15MG/ML) IV ONE (20:07)
[2024-01-16] MEDS ORDERED: AZIT250T9 PO (20:17)
[2024-01-16] MEDS ORDERED: KETO10TA2 PO (20:17)
== END 2024-01-16 20:50 | disposition home or self-care (01) ==
LOC: EDH 17:03
DX: S22.31XA Fracture of one rib, right side, initial encounter for closed fracture (principal); M25.551 Pain in right hip; M25.511 Pain in right shoulder; M79.641 Pain in right hand; I25.10 Atherosclerotic heart disease of native coronary artery without angina pectoris; E78.00 Pure hypercholesterolemia, unspecified; I10 Essential (primary) hypertension; Z88.5 Allergy status to narcotic agent; Z79.899 Other long term (current) drug therapy; Z79.2 Long term (current) use of antibiotics; Z96.653 Presence of artificial knee joint, bilateral; Z96.641 Presence of right artificial hip joint; Z96.611 Presence of right artificial shoulder joint; Z98.890 Other specified postprocedural states; W18.39XA Other fall on same level, initial encounter; Y93.89 Activity, other specified; Y92.89 Other specified places as the place of occurrence of the external cause; Y99.8 Other external cause status
CPT/HCPCS: 99284; 96374; 71045; 87086 ×2; 87186; 81001; 73100; 73000; 73130; 73030; 73020; J1885